=== PATIENT | male | born 1930 | race Caucasian/White ===

== ENCOUNTER 2017-04-28 10:32 | Inpatient (IN) | payer OTHER ==
[2017-04-28 10:37] VITALS: BMI 23.9
--- NOTE | 2017-04-28 11:29 | PDOC ---
History of Present Illness - General Chief Complaint: Pain Stated Complaint: RT ARM PAIN Time Seen by Provider: 04/28/17 11:08 History Source: Patient Exam Limitations: No Limitations - History of Present Illness Initial Comments: 04/28/17 12:01 Patient is an 86-year-old male past medical history of CAD, CABG, pacemaker, A. fib on warfarin, valve replacement, gout, HTN, who presents to the emergency department today complaining of right elbow pain. Patient states that his symptoms started yesterday and they started suddenly. Patient denies trauma to the arm, falling. Patient states that he is unable to extend or bend his arm and he is in a lot of pain trying to do so. He was unable to sleep last night because of the pain. He also noticed that his right hand is slightly swollen. Patient tried taking 2 Tylenol with no relief. Denies fevers, chills, weakness, recent illness, cough, shortness of breath, chest pain, palpitations, nausea, vomiting and diarrhea. Past History - Travel Traveled outside of the country in the last 30 days: No Close contact w/someone who was outside of country & ill: No - Past Medical History Allergies/Adverse Reactions: Allergies Allergy/AdvReac Type Severity Reaction Status Date / Time No Known Allergies Allergy Verified 04/28/17 10:37 Home Medications: Ambulatory Orders Allopurinol [Zyloprim -] 100 mg PO DAILY #0 tablet 06/14/12 Atenolol [Tenormin -] 50 mg PO BID 05/15/13 Escitalopram Oxalate [Lexapro -] 10 mg PO DAILY 04/23/15 Tamsulosin HCl 0.4 mg PO DAILY 04/23/15 Arformoterol Tartrate [Brovana -] 1 amp NEB BID #60 amp 08/20/15 Albuterol 2.5/Ipratropium 0.5 [Duoneb -] 1 neb NEB QIDR PRN 2 Days 12/29/15 Aspirin Coated [Ecotrin -] 81 mg PO DAILY #30 tablet.ec 12/29/15 Diltiazem Cd [Cardizem Cd -] 240 mg PO DAILY #30 cap.cd.24h 02/26/16 Furosemide [Lasix -] 40 mg PO DAILY tablet 02/26/16 Acetaminophen W/ Codeine #3 [Tylenol # 3 -] 1 tab PO Q6H PRN #20 tablet MDD 4 08 /16/17 Warfarin Sodium 4 mg PO HS 04/28/17 Anemia: No Asthma: No Cancer: No Cardiac Disorders: Yes (CAD, CABG, PPM(medtronic) a-fib) CVA: No COPD: Yes CHF: Yes Dementia: No Diabetes: No GI Disorders: No Disorders: No HTN: Yes Hypercholesterolemia: Yes Liver Disease: No Suicide Attempt (Hx): No Seizures: No Thyroid Disease: No - Surgical History Abdominal Surgery: No Appendectomy: No Cardiac Surgery: Yes (cardiac bypass, pacemaker) Cholecystectomy: No Lung Surgery: No Neurologic Surgery: No Orthopedic Surgery: No - Psycho/Social/Smoking Cessation Hx Anxiety: No Suicidal Ideation: No Smoking Status: Yes Smoking History: Never smoked Have you smoked in the past 12 months: No Number of Cigarettes Smoked Daily: 0 If you are a former smoker, when did you quit?: 40 YRS AGO Hx Alcohol Use: No Drug/Substance Use Hx: No Substance Use Type: None Hx Substance Use Treatment: No Review of Systems - Review of Systems Constitutional: No: Chills, Fever, Malaise, Weakness HEENTM: No: Other Respiratory: No: Cough, Wheezing Cardiac (ROS): No: Chest Pain, Lightheadedness, Palpitations, Chest Tightness ABD/GI: No: Diarrhea, Nausea, Vomiting Musculoskeletal: Yes: Joint Pain (R elbow), Joint Swelling (R elbow), Joint Stiffness (r elbow) Neurological: No: Numbness, Paresthesia, Tingling, Tremors, Weakness All Other Systems: Reviewed and Negative *Physical Exam - Vital Signs Last Vital Signs Temp Pulse Resp BP Pulse Ox 97.5 F L 62 20 144/89 98 04/28/17 10:33 04/28/17 10:33 04/28/17 10:33 04/28/17 10:33 04/28/17 10:33 - Physical Exam Comments: 04/28/17 12:02 GENERAL: Well developed, well nourished. Awake and alert. No acute distress. HEENT: Normocephalic, atraumatic. PERRLA, EOMI. No conjunctival pallor. Sclera are non- icteric. Moist mucous membranes. Oropharynx is clear. NECK: Supple. Full ROM. No JVD. Carotid pulses 2+ and symmetric, without bruits. No thyromegaly. No lymphadenopathy. CARDIOVASCULAR: Regular rate and rhythm. No murmurs, rubs, or gallops. Distal pulses are 2+ and symmetric. PULMONARY: No evidence of respiratory distress. Lungs clear to auscultation bilaterally. No wheezing, rales or rhonchi. ABDOMINAL: Soft. Non-tender. Non-distended. No rebound or guarding. No organomegaly. Normoactive bowel sounds. MUSCULOSKELETAL Normal range of motion at all joints. No bony deformities or tenderness. No CVA tenderness. EXTREMITIES: No cyanosis. No clubbing. No edema. No calf tenderness. SKIN: Warm and dry. Normal capillary refill. No rashes. No jaundice. NEUROLOGICAL: Alert, awake, appropriate. Cranial nerves 2-12 intact. No deficits to light touch and temperature in face, upper extremities and lower extremities. No motor deficits in the in face, upper extremities and lower extremities. Normoreflexic in the upper and lower extremities. Normal speech. Toes are down- going bilaterally. Gait is normal without ataxia. PSYCHIATRIC: Cooperative. Good eye contact. Appropriate mood and affect. ED Treatment Course - LABORATORY CBC & Chemistry Diagram: 04/28/17 11:45 04/28/17 11:45 Medical Decision Making - Medical Decision Making 04/28/17 12:02 Patient is an 86-year-old male past medical history of CAD, CABG, pacemaker, A. fib on warfarin, valve replacement, gout, HTN, who presents to the emergency department today complaining of right elbow pain. Given lack of trauma, less suspicious for acute fracture. Differential diagnosis includes but not limited to hemarthrosis due to Coumadin use, septic joint, gout flare. 1. CBC, CMP, PT/INR, uric acid 2. x-ray of right elbow and right shoulder 3. Tylebol for pain 4. Re-evaluate 04/28/17 14:12 X-rays are negative for fracture. Lab work is significant for a uric acid of 8.5, WBC WNL, BUN/Cr 44/1.8 ( baseline Cr 1.6). Most probably a gout flare. Will give pain medications for home as well as compression wrap and sling for comfort. Will avoid ibuprofen as BUN and Cr are mildly elevated. Will give referral for ortho as outpatient. 04/28/17 14:54 Repeat blood pressure prior discharge now 230/110. Pt. states that he missed his home medication. Will order his home medication at this time and re- evaluate his vitals in approximately 30 minutes. 04/28/17 15:52 4 mg of morphine given for pain control. BP still 230/100. Will reassess after morphine 04/28/17 17:02 Pt. blood pressure still elevated after 4mg of morphine. Pt. reports that elbow feels a little better. Pressure still holding at 230/100. Pt. states that he has not seen a motion picture camera lens technician in a couple of years. Will call Dr. Sandoval. 04/28/17 17:[address] Sandoval. Will accept the patient to telemetry. *DC/Admit/Observation/Transfer Diagnosis at time of Disposition: Gout Qualifiers: Gout site: elbow Gout etiology: unspecified cause Chronicity: acute Laterality : right Qualified Code(s): M10.9 - Gout, unspecified HTN (hypertension) Qualifiers: Hypertension type: unspecified Qualified Code(s): I10 - Essential (primary) hypertension - Discharge Dispostion Disposition: HOME Condition at time of disposition: Guarded Admit: Yes - Prescriptions Prescriptions: Acetaminophen W/ Codeine #3 [Tylenol # 3 -] 1 tab PO Q6H PRN #20 tablet MDD 4 PRN Reason: Pain - Referrals Referrals: Dory Sandoval MD [Primary Care Provider] - - Patient Instructions Additional Instructions: You have a gout flare in your R elbow. This can be very painful. Continue to take your allopurinol as prescribed by your primary care doctor. You were also prescribed Tylenol with codeine. You may take this medication as needed for pain. This medication can make you sleepy; do not drive after taking Tylenol with codeine. You were given a sling for comfort. You make take the sling off to sleep. You were also given an mindi wrap for comfort. Follow up with orthopedics (referral number listed in the packet) to make an appointment for later this week. You received your daily dose of Dilitazem (Cardizem) today in the ED. Do not take this medication when you go home. Resume it tomorrow. You received one dose of Atenolol. Take your evening dose of Atenolol at your regular scheduled time. Return to the ED if you have worsening pain, fevers, chills, nausea, vomiting, or any other changes in your symptoms.
[2017-04-28] MEDS ORDERED: ACETAMINOPHEN 325 MG TABLET (FP) PO ONE (11:37)
[2017-04-28 11:57] LABS: BASOPHIL 0.2 % (0-2.0); EOSINOPHIL 1.7 % (0-4.5); MCH 30.5 pg (25.7-33.7); MEAN CELL VOLUME 95.3 fl (80-96); MEAN PLT VOLUME 8.7 fl (7.5-11.1); NEUTROPHILS 68.1 % (42.8-82.8); PLATELET COUNT 100 K/MM3 (134-434); RDW 15.2 % (11.9-15.9); WHITE BLOOD COUNT 5.9 K/mm3 (4.0-10.0)
[2017-04-28] MEDS ORDERED: ACETAMINOPHEN 325 MG TABLET (FP) ONE (12:01)
[2017-04-28 12:13] LABS: INR 2.02 (0.82-1.09); PROTHROMBIN TIME (PATIENT) 22.5 SEC (9.98-11.88)
[2017-04-28 12:23] LABS: ALBUMIN 3.4 g/dl (3.4-5.0); ALK PHOS 67 U/L (45-117); ANION GAP 7 (8-16); BILIRUBIN,TOTAL 0.7 mg/dL (0.2-1.0); CALCIUM 8.5 mg/dL (8.5-10.1); CO2 26 mmol/L (21-32); CREATININE 1.8 mg/dL (0.7-1.3); GLUCOSE,RANDOM 108 mg/dL (74-106); SGOT/AST 18 U/L (15-37); SGPT/ALT 24 U/L (12-78); TOT PROT 6.4 g/dl (6.4-8.2); URIC ACID 8.5 mg/dL (2.6-7.2)
[2017-04-28 14:08] LABS: C-REACTIVE PROTEIN 3.3 MG/DL (0.00-0.3)
[2017-04-28] MEDS ORDERED: ATENOLOL 50 MG TABLET (FP) PO ONE ×2 (14:44→22:15)
[2017-04-28] MEDS ORDERED: dilTIAZem HCL 60 MG TABLET (FP) PO ONE (14:44)
[2017-04-28] MEDS ORDERED: ATENOLOL 25 MG TABLET (FP) ONE (14:55)
[2017-04-28] MEDS ORDERED: ACETAMINOPHEN WITH CODEINE 300MG/30MG TABLET PO ONE (16:09)
[2017-04-28] MEDS ORDERED: morphine CARPU-JECT 2 MG/1 ML DISP.SYRIN IM ONE (16:13)
[2017-04-28] MEDS ORDERED: morphine CARPU-JECT 4 MG/1 ML DISP.SYRIN ONE (16:15)
[2017-04-28] MEDS ORDERED: hydrALAZINE HCL 20 MG/ML VIAL IVPUSH ONE (17:52)
[2017-04-28] MEDS ORDERED: hydrALAZINE HCL 20 MG/ML VIAL ONE (17:54)
--- NOTE | 2017-04-28 18:31 | PDOC ---
*Physical Exam - Vital Signs Last Vital Signs Temp Pulse Resp BP Pulse Ox 97.6 F 66 18 234/94 98 04/28/17 18:02 04/28/17 18:05 04/28/17 18:05 04/28/17 18:05 04/28/17 18:05 ED Treatment Course - LABORATORY CBC & Chemistry Diagram: 04/30/17 05:35 04/29/17 05:35 - ADDITIONAL ORDERS Additional order review: Laboratory Results 04/28/17 04/28/17 11:45 11:45 INR 2.02 H Sodium 142 Potassium 4.1 Chloride 109 H Carbon Dioxide 26 Anion Gap 7 L BUN 47 H Creatinine 1.8 H Creat Clearance w eGFR 36.04 Random Glucose 108 H D Uric Acid 8.5 H D Calcium 8.5 Total Bilirubin 0.7 AST 18 ALT 24 D Alkaline Phosphatase 67 C-Reactive Protein 3.3 H Total Protein 6.4 Albumin 3.4 04/28/17 11:45 RBC 4.14 MCV 95.3 MCHC 32.0 RDW 15.2 MPV 8.7 Neutrophils % 68.1 Lymphocytes % 15.3 Monocytes % 14.7 H D Eosinophils % 1.7 Basophils % 0.2 D - Medications Given in the ED: ED Medications Discontinued Medications Generic Name Dose Route Start Last Admin Trade Name Freq PRN Reason Stop Dose Admin Acetaminophen 650 mg 04/28/17 11:37 04/28/17 12:06 Tylenol - PO 04/28/17 11:38 650 mg ONCE ONE Administration Atenolol 50 mg 04/28/17 14:44 04/28/17 14:57 Tenormin - PO 04/28/17 14:45 50 mg ONCE ONE Administration Diltiazem HCl 240 mg 04/28/17 15:08 04/28/17 15:11 Cardizem Cd - PO 04/28/17 15:09 240 mg ONCE ONE Administration Hydralazine HCl 10 mg 04/28/17 17:52 04/28/17 18:03 Apresoline Injection - IVPUSH 04/28/17 17:53 10 mg ONCE ONE Administration Morphine Sulfate 4 mg 04/28/17 16:13 04/28/17 16:20 Morphine Injection - IM 04/28/17 16:14 4 mg ONCE ONE Administration Medical Decision Making - Medical Decision Making 04/28/17 18:29 This patient is an 86-year-old male with a history of hypertension who presents emergency Department with elbow pain and swelling. He has a prior history of gout,, last flare was many years ago. No fevers, no chills. No trauma. On examination, patient is motion is limited due to pain. Patient's labs suggest possible gout flare. Attempting to discharge this patient however BP elevated Pt given his home medications, pain medications BP remains elevated He has no complaints of chest pain, shortness of breath, palpitations will give Hydralazine Re assess BP Admit to PMD for closer monitoring Pt complained of increased shortness of breath Repeat labs including BNP and Trop CXR Signed out to Dr Barajas Pt seen by Midlevel Provider under my direct supervision Ancillary studies reviewed I agree with plan as outlined by Midlevel Provider *DC/Admit/Observation/Transfer Diagnosis at time of Disposition: Gout Qualifiers: Gout site: elbow Gout etiology: unspecified cause Chronicity: acute Laterality : right Qualified Code(s): M10.9 - Gout, unspecified HTN (hypertension) Qualifiers: Hypertension type: unspecified Qualified Code(s): I10 - Essential (primary) hypertension - Discharge Dispostion Disposition: HOME Condition at time of disposition: Guarded - Prescriptions
[2017-04-28] MEDS ORDERED: LORazepam 2 MG/ML SDV VIAL ONE (19:27)
[2017-04-28 20:49] LABS: ALBUMIN 3.4 g/dl (3.4-5.0); ANION GAP 8 (8-16); CALCIUM 8.5 mg/dL (8.5-10.1); CO2 26 mmol/L (21-32); CREATININE 1.5 mg/dL (0.7-1.3); GLUCOSE,RANDOM 113 mg/dL (74-106); SGOT/AST 18 U/L (15-37); SGPT/ALT 23 U/L (12-78)
[2017-04-28 20:52] LABS: ALK PHOS 64 U/L (45-117); CPK 100 IU/L (39-308); TOT PROT 6.2 g/dl (6.4-8.2); TROPONIN I < 0.02 ng/ml (0.00-0.05)
[2017-04-28] MEDS ORDERED: FUROSEMIDE 40 MG/4 ML INJECTABLE VIAL IVPUSH ONE (22:15)
[2017-04-28] MEDS ORDERED: ACETAMINOPHEN 325 MG TABLET (FP) PO PRN (23:35)
[2017-04-28] MEDS ORDERED: ACETAMINOPHEN WITH CODEINE 300MG/30MG TABLET PO PRN (23:35)
[2017-04-28] MEDS ORDERED: ALBUTEROL SO4 2.5/IPRATROPIUM 0.5 INH SOL 3 ML VIAL.NEB. NEB PRN (23:35)
[2017-04-29] MEDS ORDERED: hydrALAZINE HCL 20 MG/ML VIAL ONE (02:42)
[2017-04-29] MEDS ORDERED: hydrALAZINE HCL 20 MG/ML VIAL IVPUSH ONE (02:45)
[2017-04-29 07:45] LABS: ALBUMIN 3.2 g/dl (3.4-5.0); ANION GAP 7 (8-16); CALCIUM 8.2 mg/dL (8.5-10.1); CO2 26 mmol/L (21-32); CREATININE 1.5 mg/dL (0.7-1.3); GLUCOSE,RANDOM 81 mg/dL (74-106); SGOT/AST 15 U/L (15-37); SGPT/ALT 20 U/L (12-78); TOT PROT 5.9 g/dl (6.4-8.2)
[2017-04-29 07:46] LABS: ALK PHOS 59 U/L (45-117)
[2017-04-29 08:17] LABS: BASOPHIL 0.3 % (0-2.0); EOSINOPHIL 1.3 % (0-4.5); MCH 31.8 pg (25.7-33.7); MCHC 33.7 g/dl (32.0-35.9); MEAN CELL VOLUME 94.3 fl (80-96); MEAN PLT VOLUME 10.2 fl (7.5-11.1); NEUTROPHILS 72.2 % (42.8-82.8); PLATELET COUNT 118 K/MM3 (134-434); RDW 15.6 % (11.9-15.9); WHITE BLOOD COUNT 6.1 K/mm3 (4.0-10.0)
--- NOTE | 2017-04-29 08:21 | HP ---
Admitting History and Physical - Admission History of Present Illness: 86-year-old male past medical history of CAD, CABG, pacemaker, A. fib on warfarin, valve replacement, gout, HTN, who presents to the emergency department today complaining of right elbow pain. Patient states that his symptoms started yesterday and they started suddenly. Patient denies trauma to the arm, falling. Patient states that he is unable to extend or bend his arm and he is in a lot of pain trying to do so. He was unable to sleep last night because of the pain. He also noticed that his right hand is slightly swollen. Patient tried taking 2 Tylenol with no relief. Denies fevers, chills, weakness, recent illness, cough, shortness of breath, chest pain, palpitations, nausea, vomiting and diarrhea. - Past Medical History CHEF FRENCH: Yes: Dementia Cardiovascular: Yes: AFIB, CAD (s/p CABG), CHF Pulmonary: Yes: COPD Gastrointestinal: Yes: Other (colonic polyps) Renal/: Yes: Renal Inusuff - Past Surgical History Past Surgical History: Yes: CABG, Permanent Pacemaker, Valve Replacement - Smoking History Smoking history: Former smoker Have you smoked in the past 12 months: No Aproximately how many cigarettes per day: 0 If you are a former smoker, when did you quit?: 40 YRS AGO - Alcohol/Substance Use Hx Alcohol Use: No Home Medications - Allergies Allergies/Adverse Reactions: Allergies Allergy/AdvReac Type Severity Reaction Status Date / Time No Known Allergies Allergy Verified 04/28/17 10:37 - Home Medications Home Medications: Ambulatory Orders Allopurinol [Zyloprim -] 100 mg PO DAILY #0 tablet 06/14/12 Atenolol [Tenormin -] 50 mg PO BID 05/15/13 Escitalopram Oxalate [Lexapro -] 10 mg PO DAILY 04/23/15 Tamsulosin HCl 0.4 mg PO DAILY 04/23/15 Arformoterol Tartrate [Brovana -] 1 amp NEB BID #60 amp 08/20/15 Albuterol 2.5/Ipratropium 0.5 [Duoneb -] 1 neb NEB QIDR PRN 2 Days 12/29/15 Aspirin Coated [Ecotrin -] 81 mg PO DAILY #30 tablet.ec 12/29/15 Diltiazem Cd [Cardizem Cd -] 240 mg PO DAILY #30 cap.cd.24h 02/26/16 Furosemide [Lasix -] 40 mg PO DAILY tablet 02/26/16 Acetaminophen W/ Codeine #3 [Tylenol # 3 -] 1 tab PO Q6H PRN #20 tablet MDD 4 Warfarin Sodium 4 mg PO HS 04/28/17 Review of Systems - Review of Systems Cardiovascular: denies: Chest Pain Respiratory: reports: SOB, SOB on Exertion. denies: Cough Gastrointestinal: denies: Abdominal Pain Genitourinary: reports: No Symptoms Musculoskeletal: reports: Joint Pain (rt elbow), Joint Swelling (rt elbow) Neurological: reports: Unsteady Gait, Weakness. denies: Syncope Physical Examination Vital Signs: Vital Signs Temperature 98.9 F 04/29/17 06:00 Pulse Rate 65 04/29/17 06:00 Respiratory Rate 18 04/29/17 06:00 Blood Pressure 189/92 04/29/17 06:00 O2 Sat by Pulse Oximetry (%) 98 04/28/17 22:00 Cardiovascular: Yes: Murmur, S1, S2 Respiratory: Yes: Diminished, Rales Gastrointestinal: Yes: Normal Bowel Sounds, Soft Extremities: Yes: Other (swelling rt elbow) Labs: CBC, BMP 04/29/17 05:35 Problem List - Problems (1) Afib Assessment/Plan: ON COUMADIN INR THERAPEUTIC Code(s): I48.91 - UNSPECIFIED ATRIAL FIBRILLATION Qualifiers: Atrial fibrillation type: chronic Qualified Code(s): I48.2 - Chronic atrial fibrillation (2) CAD (coronary artery disease) Assessment/Plan: STABLE NO CP Code(s): I25.10 - ATHSCL HEART DISEASE OF [place] CORONARY ARTERY W/O ANG PCTRS Qualifiers: Coronary Disease-Associated Artery/Lesion type: unspecified vessel or lesion type (3) Gout Assessment/Plan: Laboratory Tests 04/28/17 11:45 Uric Acid 8.5 H D SOLUMEDROL ORTHO Code(s): M10.9 - GOUT, UNSPECIFIED Qualifiers: Gout site: elbow Gout etiology: unspecified cause Chronicity: acute Laterality: right Qualified Code(s): M10.9 - Gout, unspecified (4) CHF (congestive heart failure) Assessment/Plan: IV LASIX CARDIO Code(s): I50.9 - HEART FAILURE, UNSPECIFIED Qualifiers: Congestive heart failure type: unspecified congestive heart failure type Congestive heart failure chronicity: unspecified congestive heart failure chronicity Qualified Code(s): I50.9 - Heart failure, unspecified (5) COPD (chronic obstructive pulmonary disease) Assessment/Plan: NEBS ON STEROIDS Code(s): J44.9 - CHRONIC OBSTRUCTIVE PULMONARY DISEASE, UNSPECIFIED Qualifiers : COPD type: COPD with acute exacerbation Qualified Code(s): J44.1 - Chronic obstructive pulmonary disease with (acute) exacerbation (6) Weakness Code(s): R53.1 - WEAKNESS
[2017-04-29 09:06] LABS: INR 1.74 (0.82-1.09); PROTHROMBIN TIME (PATIENT) 19.4 SEC (9.98-11.88)
[2017-04-29] MEDS: TAMSULOSIN HCL 0.4 MG CAP.ER.24H (FP) PO SCH (09:56)
[2017-04-29] MEDS: ASPIRIN COATED 81 MG TABLET.EC PO SCH (09:56)
[2017-04-29] MEDS: ESCITALOPRAM OXALATE 10 MG TABLET (FP) PO SCH (09:56)
[2017-04-29] MEDS: methylPREDNISolone NA SUCC 40 MG/1 ML VIAL IVPB SCH ×2 (09:58→18:03)
[2017-04-29] MEDS ORDERED: FUROSEMIDE 40 MG/4 ML INJECTABLE VIAL IVPUSH SCH (10:00)
[2017-04-29] MEDS: ALBUTEROL SO4 2.5/IPRATROPIUM 0.5 INH SOL 3 ML VIAL.NEB. NEB SCH ×3 (11:56→23:05)
[2017-04-29] MEDS: hydrALAZINE HCL 25 MG TABLET (FP) PO SCH ×2 (14:33→21:42)
--- NOTE | 2017-04-29 14:54 | EKG ---
Test Reason : Blood Pressure : / mmHG Vent. Rate : 064 BPM Atrial Rate : 055 BPM P-R Int : 000 ms QRS Dur : 176 ms QT Int : 496 ms P-R-T Axes : 000 267 041 degrees QTc Int : 511 ms Ventricular-paced rhythm WITH OCCASIONAL PREMATURE VENTRICULAR COMPLEXES ABNORMAL ECG WHEN COMPARED WITH ECG OF 24-FEB-2016 17:08, PREMATURE VENTRICULAR COMPLEXES ARE NOW PRESENT VENT. RATE HAS INCREASED BY 3 BPM Confirmed by EZEQUIEL COHEN, MICHELLE ([id number]) on 04/29/2017 2:53:56 PM Referred By: Confirmed By:MICHELLE NIEVES MD
--- NOTE | 2017-04-29 14:56 | EKG ---
Test Reason : Blood Pressure : / mmHG Vent. Rate : 065 BPM Atrial Rate : 044 BPM P-R Int : 000 ms QRS Dur : 088 ms QT Int : 420 ms P-R-T Axes : 000 096 -39 degrees QTc Int : 436 ms POOR DATA QUALITY, INTERPRETATION MAY BE ADVERSELY AFFECTED ATRIAL FIBRILLATION WITH FREQUENT ventricular-paced complexes RIGHTWARD AXIS CANNOT RULE OUT INFERIOR INFARCT , AGE UNDETERMINED ANTEROSEPTAL INFARCT , AGE UNDETERMINED T WAVE ABNORMALITY, CONSIDER LATERAL ISCHEMIA ABNORMAL ECG WHEN COMPARED WITH ECG OF 24-FEB-2016 17:08, VENT. RATE HAS INCREASED BY 4 BPM Confirmed by MICHELLE NIEVES MD ([id number]) on 04/29/2017 2:56:11 PM Referred By: Confirmed By:MICHELLE NIEVES MD
--- NOTE | 2017-04-29 15:28 | CON.CARD ---
Consult Consult Specialty:: Cardiology Referred by:: Dr. Sandoval Reason for Consultation:: CHF - History of Present Illness Chief Complaint: Shortness of breath/CHF History of Present Illness: 86-year-old man with a PMHx of HTN, CAD, s/p CABG, CHF, pacemaker, atrial fibrillation on warfarin, s/p valve replacement, gout admitted 04/28/2017 with right elbow pain. Patient developed right elbow pain one day prior to this admission. He denies trauma to the arm, falling. Patient tried taking 2 Tylenol with no relief. He has occasional shortness of breath with limited exercise tolerance for some time. He was found to have pulmonary congestion with marked elevated pro-BNP, consistent with acute CHF. He reports no chest pain, palpitation, dizziness, syncope, near syncope, edema, orthopnea or PND. 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: Dementia Cardio/Vascular: Yes: AFIB, CAD (s/p CABG), CHF Pulmonary: Yes: COPD Gastrointestinal: Yes: Other (colonic polyps) Renal/: Yes: Renal Inusuff - Past Surgical History Past Surgical History: Yes: CABG, Permanent Pacemaker, Valve Replacement - Alcohol/Substance Use Hx Alcohol Use: No - Smoking History Smoking history: Former smoker Have you smoked in the past 12 months: No Aproximately how many cigarettes per day: 0 If you are a former smoker, when did you quit?: 40 YRS AGO - Social History Usual Living Arrangement: With Spouse History of Recent Travel: No Home Medications - Allergies Allergies/Adverse Reactions: Allergies Allergy/AdvReac Type Severity Reaction Status Date / Time No Known Allergies Allergy Verified 04/28/17 10:37 - Home Medications Home Medications: Ambulatory Orders Allopurinol [Zyloprim -] 100 mg PO DAILY #0 tablet 06/14/12 Atenolol [Tenormin -] 50 mg PO BID 05/15/13 Escitalopram Oxalate [Lexapro -] 10 mg PO DAILY 04/23/15 Tamsulosin HCl 0.4 mg PO DAILY 04/23/15 Arformoterol Tartrate [Brovana -] 1 amp NEB BID #60 amp 08/20/15 Albuterol 2.5/Ipratropium 0.5 [Duoneb -] 1 neb NEB QIDR PRN 2 Days 12/29/15 Aspirin Coated [Ecotrin -] 81 mg PO DAILY #30 tablet.ec 12/29/15 Diltiazem Cd [Cardizem Cd -] 240 mg PO DAILY #30 cap.cd.24h 02/26/16 Furosemide [Lasix -] 40 mg PO DAILY tablet 02/26/16 Acetaminophen W/ Codeine #3 [Tylenol # 3 -] 1 tab PO Q6H PRN #20 tablet MDD 4 Warfarin Sodium 4 mg PO HS 04/28/17 Review of Systems - Review of Systems Constitutional: reports: No Symptoms Eyes: reports: No Symptoms HENT: reports: No Symptoms Neck: reports: No Symptoms Cardiovascular: reports: Shortness of Breath Respiratory: reports: SOB Gastrointestinal: reports: No Symptoms Genitourinary: reports: No Symptoms Musculoskeletal: reports: Joint Swelling, Other (Right elbow pain.) Integumentary: reports: No Symptoms Neurological: reports: No Symptoms Endocrine: reports: No Symptoms Hematology/Lymphatic: reports: No Symptoms Vital Signs: Vital Signs Temperature 98.6 F 04/29/17 14:22 Pulse Rate 60 04/29/17 14:22 Respiratory Rate 18 04/29/17 14:22 Blood Pressure 149/66 04/29/17 14:22 O2 Sat by Pulse Oximetry (%) 98 04/28/17 22:00 Constitutional: Yes: Well Nourished, No Distress Eyes: Yes: WNL HENT: Yes: WNL, Atraumatic, Normocephalic Neck: Yes: Supple, Trachea Midline Respiratory: Yes: Regular, Other (Bilateral rales, 2/3 up from the back.) Gastrointestinal: Yes: Normal Bowel Sounds, Soft Renal/: Yes: WNL Cardiovascular: Yes: Regular Rate and Rhythm JVD: No Carotid Bruit: No Heart Sounds: Yes: S1, S2 Murmur: Yes: Systolic Murmur, Grade 1 Edema: No Peripheral Pulses WNL: Yes Integumentary: Yes: WNL Neurological: Yes: WNL - Other Data Labs, Other Data: CBC, BMP 04/29/17 05:35 04/29/17 05:35 INR, PTT INR 1.74 (0.82-1.09) H 04/29/17 05:35 Ventricularly paced rhythm at 64 BPM. Imaging - Results Chest X-ray: Report Reviewed (Pulmonary congestion and cardiomegaly.) EKG: Image Reviewed (Paced rhythm.) Assessment/Plan 86-year-old man with a PMHx of HTN, CAD, s/p CABG, pacemaker, atrial fibrillation on warfarin, s/p valve replacement, gout admitted 04/28/2017 with right elbow pain. He was found to have pulmonary congestion with marked elevated pro-BNP, consistent with acute CHF. 1) CHF with CXR evidence of pulmonary congestion and cardiomegaly.His pro-BNP is markedly elevated. Patient has no acute dyspnea. Increase IV Lasix to 40 mg twice daily to keep Os > Is. Monitor daily weight, lytes and renal function. Obtain echo for cardiac dimension and function. 2) CAD, s/p CABG. Stable no recurrent angina Continue aspirin and atenolol. 3) Atrial fibrillation. Currently in paced rhythm. Continue atenolol and cardizem. Continue Warfarin for stroke prevention to keep INR 2-3.
--- NOTE | 2017-04-29 17:24 | PN ---
Progress Note (short form) - Note Progress Note: Pt seen and examined. He is an 86 yo M right hand dom pt with c/o 2 days of increasing swelling and severe pain in the right hand, elbow, and shoulder. He came through the ER. He has improved dramatically over the past 24 hours. Now he is able to move the right shoulder, elbow, forearm, wrist, fingers, thumb well and without pain. The swelling has improved dramatically. Right shoulder, elbow, wrist joints are not hot or erythematous. 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 No acute pathology. Show mod right elbow OA, no acute pathology. Imp Likely an acute Gout flare up, now 95% resolved. Rec Con't on antogout meds. No ortho intervention needed at this time. Can DC Wednesday from an ortho pov
[2017-04-29] MEDS ORDERED: WARFARIN NA 2 MG TABLET (UD) PO SCH (18:00)
[2017-04-29] MEDS: ATENOLOL 50 MG TABLET (FP) PO SCH (21:42)
[2017-04-30] MEDS: methylPREDNISolone NA SUCC 40 MG/1 ML VIAL IVPB SCH ×2 (02:15→10:11)
[2017-04-30] MEDS: ALBUTEROL SO4 2.5/IPRATROPIUM 0.5 INH SOL 3 ML VIAL.NEB. NEB SCH ×3 (05:35→17:00)
[2017-04-30] MEDS: FUROSEMIDE 40 MG/4 ML INJECTABLE VIAL IVPUSH SCH ×2 (06:07→14:05)
[2017-04-30] MEDS: hydrALAZINE HCL 25 MG TABLET (FP) PO SCH ×2 (06:07→14:05)
[2017-04-30 08:14] LABS: MCH 30.5 pg (25.7-33.7); MCHC 32.5 g/dl (32.0-35.9); MEAN CELL VOLUME 93.9 fl (80-96); MEAN PLT VOLUME 9.8 fl (7.5-11.1); NEUTROPHILS 92.6 % (42.8-82.8); PLATELET COUNT 118 K/MM3 (134-434); RDW 15.5 % (11.9-15.9); WHITE BLOOD COUNT 9.3 K/mm3 (4.0-10.0)
[2017-04-30 09:00] LABS: ALBUMIN 3.3 g/dl (3.4-5.0); ALK PHOS 62 U/L (45-117); ANION GAP 11 (8-16); BILIRUBIN,TOTAL 0.6 mg/dL (0.2-1.0); CALCIUM 8.9 mg/dL (8.5-10.1); CO2 23 mmol/L (21-32); CREATININE 1.9 mg/dL (0.7-1.3); GLUCOSE,RANDOM 147 mg/dL (74-106); SGOT/AST 20 U/L (15-37); SGPT/ALT 22 U/L (12-78); TOT PROT 6.4 g/dl (6.4-8.2)
--- NOTE | 2017-04-30 09:47 | PN ---
Progress Note (short form) - Note Progress Note: Ortho Pt seen and examined -feeling much better- states he has little to no pain decr swelling and erythema, decr pain, incr rom nvi a/p Continue with current gout tx NTD ok to d/c per ortho d/w Dr. Michaels
[2017-04-30] MEDS: TAMSULOSIN HCL 0.4 MG CAP.ER.24H (FP) PO SCH (10:11)
[2017-04-30] MEDS: ESCITALOPRAM OXALATE 10 MG TABLET (FP) PO SCH (10:11)
[2017-04-30] MEDS: ATENOLOL 50 MG TABLET (FP) PO SCH (10:11)
[2017-04-30] MEDS: ASPIRIN COATED 81 MG TABLET.EC PO SCH (10:11)
[2017-04-30 11:00] LABS: INR 1.62 (0.82-1.09)
--- NOTE | 2017-04-30 11:44 | DS ---
Physical Examination Vital Signs: Vital Signs Temperature 98.2 F 04/30/17 09:05 Pulse Rate 60 04/30/17 09:05 Respiratory Rate 16 04/30/17 09:05 Blood Pressure 142/68 04/30/17 09:05 O2 Sat by Pulse Oximetry (%) 95 04/29/17 21:00 Constitutional: Yes: Calm Cardiovascular: Yes: Regular Rate and Rhythm, Murmur, S1, S2 Respiratory: Yes: CTA Bilaterally, Diminished (on right lower lobe) Gastrointestinal: Yes: Normal Bowel Sounds, Soft Edema: No Labs: CBC, BMP 04/30/17 05:35 04/30/17 05:35 Discharge Summary Reason For Visit: GOUT\HYPERTENSION Current Active Problems Afib (Acute) BPH (benign prostatic hyperplasia) (Acute) CAD (coronary artery disease) (Acute) GIB (gastrointestinal bleeding) (Acute) Gout (Acute) HTN (hypertension) (Acute) Post-polypectomy bleeding (Acute) Weakness (Acute) Hospital Course: 86-year-old male past medical history of CAD, CABG, pacemaker, A. fib on warfarin, valve replacement, gout, HTN, who presents to the emergency department today complaining of right elbow pain. Patient states that his symptoms started yesterday and they started suddenly. Patient denies trauma to the arm, falling. Patient states that he is unable to extend or bend his arm and he is in a lot of pain trying to do so. He was unable to sleep last night because of the pain. He also noticed that his right hand is slightly swollen. Patient tried taking 2 Tylenol with no relief. Denies fevers, chills, weakness, recent illness, cough, shortness of breath, chest pain, palpitations, nausea, vomiting and diarrhea. patient found to have pulmonary congestive - acute CHF iv lasix cardiology saw patient- change to po lasix 40mg po bid FU with PMD next week gout ortho saw patient on steroids right hand much better now copd on iv steroid will change to po steroid 60mg po prednsione with taper aifb on coumadin inr subtherapeutic give 5mg coumadin tonight and tmw and then resume regular dose Condition: Guarded - Instructions Diet, Activity, Other Instructions: You have a gout flare in your R elbow. This can be very painful. Continue to take your allopurinol as prescribed by your primary care doctor. You were also prescribed Tylenol with codeine. You may take this medication as needed for pain. This medication can make you sleepy; do not drive after taking Tylenol with codeine. You were given a sling for comfort. You make take the sling off to sleep. You were also given an mindi wrap for comfort. Follow up with orthopedics (referral number listed in the packet) to make an appointment for later this week. You received your daily dose of Dilitazem (Cardizem) today in the ED. Do not take this medication when you go home. Resume it tomorrow. You received one dose of Atenolol. Take your evening dose of Atenolol at your regular scheduled time. Return to the ED if you have worsening pain, fevers, chills, nausea, vomiting, or any other changes in your symptoms. Referrals: Dory Sandoval MD [Primary Care Provider] - - Home Medications Comprehensive Discharge Medication List: Ambulatory Orders Allopurinol [Zyloprim -] 100 mg PO DAILY #0 tablet 06/14/12 Atenolol [Tenormin -] 50 mg PO BID 05/15/13 Escitalopram Oxalate [Lexapro -] 10 mg PO DAILY 04/23/15 Tamsulosin HCl 0.4 mg PO DAILY 04/23/15 Arformoterol Tartrate [Brovana -] 1 amp NEB BID #60 amp 08/20/15 Albuterol 2.5/Ipratropium 0.5 [Duoneb -] 1 neb NEB QIDR PRN 2 Days 12/29/15 Aspirin Coated [Ecotrin -] 81 mg PO DAILY #30 tablet.ec 12/29/15 Diltiazem Cd [Cardizem Cd -] 240 mg PO DAILY #30 cap.cd.24h 02/26/16 Furosemide [Lasix -] 40 mg PO DAILY tablet 02/26/16 Acetaminophen W/ Codeine #3 [Tylenol # 3 -] 1 tab PO Q6H PRN #20 tablet MDD 4 Warfarin Sodium 4 mg PO HS 04/28/17
--- NOTE | 2017-04-30 11:49 | PN ---
Progress Note, Physician Chief Complaint: patient was very confused last nite and was calling and son her to pick him up want him home patient breathing improved and hand swelling better as well will repeat cxr today and have cardio see patient - Current Medication List Current Medications: Active Medications Acetaminophen (Tylenol -) 650 mg PO Q6H PRN PRN Reason: FEVER OR PAIN Acetaminophen/Codeine Phosphate (Tylenol # 3 -) 1 tab PO Q8H PRN PRN Reason: FEVER OR PAIN Albuterol/Ipratropium (Duoneb -) 1 amp NEB QIDR [facility] Last Admin: 04/30/17 05:35 Dose: 1 amp Aspirin (Ecotrin -) 81 mg PO DAILY [facility] Last Admin: 04/30/17 10:11 Dose: 81 mg Atenolol (Tenormin -) 50 mg PO BID [facility] Last Admin: 04/30/17 10:11 Dose: 50 mg Diltiazem HCl (Cardizem Cd -) 240 mg PO DAILY [facility] Last Admin: 04/30/17 10:11 Dose: 240 mg Escitalopram Oxalate (Lexapro -) 10 mg PO DAILY [facility] Last Admin: 04/30/17 10:11 Dose: 10 mg Furosemide (Lasix Injection -) 40 mg IVPUSH BID@0600,1400 [facility] Last Admin: 04/30/17 06:07 Dose: 40 mg Hydralazine HCl (Apresoline -) 25 mg PO TID [facility] Last Admin: 04/30/17 06:07 Dose: 25 mg Prednisone (Deltasone -) 60 mg PO DAILY [facility] Tamsulosin HCl (Flomax -) 0.4 mg PO DAILY@0830 [facility] Last Admin: 04/30/17 10:11 Dose: 0.4 mg Warfarin Sodium (Coumadin -) 4 mg PO DAILY@1800 [facility] Last Admin: 04/29/17 18:03 Dose: 4 mg - Objective Vital Signs: Vital Signs Temperature 98.2 F 04/30/17 09:05 Pulse Rate 60 04/30/17 09:05 Respiratory Rate 16 04/30/17 09:05 Blood Pressure 142/68 04/30/17 09:05 O2 Sat by Pulse Oximetry (%) 95 04/29/17 21:00 Constitutional: Yes: Calm Cardiovascular: Yes: Regular Rate and Rhythm, Murmur, S1, S2 Respiratory: Yes: CTA Bilaterally, Diminished (on right lower lobe) Gastrointestinal: Yes: Normal Bowel Sounds, Soft Edema: No Neurological: Yes: Alert, Oriented Labs: CBC, BMP 04/30/17 05:35 04/30/17 05:35 INR, PTT INR 1.62 (0.82-1.09) H 04/30/17 10:30 Problem List - Problems (1) Afib Assessment/Plan: coumadin 5mg tonight in evening prior to dc home and tmw nite then resume regular dose as inr subtherpaeutic on cardizem and metoprolol Code(s): I48.91 - UNSPECIFIED ATRIAL FIBRILLATION Qualifiers: Atrial fibrillation type: chronic Qualified Code(s): I48.2 - Chronic atrial fibrillation (2) Gout Assessment/Plan: much improved seen by ortho will change to po prednisone 60mgwith taper Code(s): M10.9 - GOUT, UNSPECIFIED Qualifiers: Gout site: elbow Gout etiology: unspecified cause Chronicity: acute Laterality: right Qualified Code(s): M10.9 - Gout, unspecified (3) CHF (congestive heart failure) Assessment/Plan: today to get two doses of lasix IV- next dose is at 200PM cxr today cardio FU change to po lasix 40mg bid from tmw and then if cxr is better dc home today in evening and FU with PMD on wednesday Code(s): I50.9 - HEART FAILURE, UNSPECIFIED Qualifiers: Congestive heart failure type: unspecified congestive heart failure type Congestive heart failure chronicity: unspecified congestive heart failure chronicity Qualified Code(s): I50.9 - Heart failure, unspecified (4) COPD (chronic obstructive pulmonary disease) Assessment/Plan: today to get one more solumedrol iv dose in evening then dc home prednisone taper from tmw Code(s): J44.9 - CHRONIC OBSTRUCTIVE PULMONARY DISEASE, UNSPECIFIED Qualifiers : COPD type: COPD with acute exacerbation Qualified Code(s): J44.1 - Chronic obstructive pulmonary disease with (acute) exacerbation (5) BPH (benign prostatic hyperplasia) Assessment/Plan: flomax Code(s): N40.0 - BENIGN PROSTATIC HYPERPLASIA WITHOUT LOWER URINRY TRACT SYMP Qualifiers: Lower urinary tract symptom presence: symptoms absent
[2017-04-30] MEDS ORDERED: FUROSEMIDE 40 MG/4 ML INJECTABLE VIAL IVPB ONE (14:00)
--- NOTE | 2017-04-30 14:04 | PN ---
Progress Note, Physician Chief Complaint: Lying flat in bed comfortable No sob History of Present Illness: 86-year-old man with a PMHx of HTN, CAD, s/p CABG, pacemaker, atrial fibrillation on warfarin, s/p valve replacement, gout admitted 04/28/2017 with right elbow pain. He was found to have pulmonary congestion with marked elevated pro-BNP, consistent with acute CHF. - Current Medication List Current Medications: Active Medications Acetaminophen (Tylenol -) 650 mg PO Q6H PRN PRN Reason: FEVER OR PAIN Acetaminophen/Codeine Phosphate (Tylenol # 3 -) 1 tab PO Q8H PRN PRN Reason: FEVER OR PAIN Albuterol/Ipratropium (Duoneb -) 1 amp NEB QIDR [facility] Last Admin: 04/30/17 11:44 Dose: 1 amp Aspirin (Ecotrin -) 81 mg PO DAILY [facility] Last Admin: 04/30/17 10:11 Dose: 81 mg Atenolol (Tenormin -) 50 mg PO BID [facility] Last Admin: 04/30/17 10:11 Dose: 50 mg Diltiazem HCl (Cardizem Cd -) 240 mg PO DAILY [facility] Last Admin: 04/30/17 10:11 Dose: 240 mg Escitalopram Oxalate (Lexapro -) 10 mg PO DAILY [facility] Last Admin: 04/30/17 10:11 Dose: 10 mg Furosemide (Lasix Injection -) 40 mg IVPUSH BID@0600,1400 [facility] Last Admin: 04/30/17 06:07 Dose: 40 mg Hydralazine HCl (Apresoline -) 25 mg PO TID [facility] Last Admin: 04/30/17 06:07 Dose: 25 mg Methylprednisolone Sodium Succinate (Solu-Medrol -) 40 mg IVPB ONCE ONE Stop: 04/30/17 17:01 Prednisone (Deltasone -) 60 mg PO DAILY [facility] Tamsulosin HCl (Flomax -) 0.4 mg PO DAILY@0830 [facility] Last Admin: 04/30/17 10:11 Dose: 0.4 mg Warfarin Sodium (Coumadin -) 5 mg PO DAILY@1800 [facility] - Objective Vital Signs: Vital Signs Temperature 98.2 F 04/30/17 09:05 Pulse Rate 60 04/30/17 09:05 Respiratory Rate 16 04/30/17 09:05 Blood Pressure 142/68 04/30/17 09:05 O2 Sat by Pulse Oximetry (%) 95 04/29/17 21:00 Constitutional: Yes: No Distress Neck: Yes: WNL Cardiovascular: Yes: Regular Rate and Rhythm, S1, S2. No: JVD Respiratory: Yes: CTA Bilaterally Gastrointestinal: Yes: WNL Extremities: Yes: WNL Edema: No Labs: CBC, BMP 04/30/17 05:35 04/30/17 05:35 INR, PTT INR 1.62 (0.82-1.09) H 04/30/17 10:30 - ....Imaging Chest X-ray: Report Reviewed Problem List - Problems (1) Afib Code(s): I48.91 - UNSPECIFIED ATRIAL FIBRILLATION Qualifiers: Atrial fibrillation type: chronic Qualified Code(s): I48.2 - Chronic atrial fibrillation (2) CAD (coronary artery disease) Code(s): I25.10 - ATHSCL HEART DISEASE OF [place] CORONARY ARTERY W/O ANG PCTRS Qualifiers: Coronary Disease-Associated Artery/Lesion type: unspecified vessel or lesion type (3) CHF (congestive heart failure) Code(s): I50.9 - HEART FAILURE, UNSPECIFIED Qualifiers: Congestive heart failure type: unspecified congestive heart failure type Congestive heart failure chronicity: unspecified congestive heart failure chronicity Qualified Code(s): I50.9 - Heart failure, unspecified Assessment/Plan 86-year-old man with a PMHx of HTN, CAD, s/p CABG, pacemaker, atrial fibrillation on warfarin, s/p valve replacement, gout admitted 04/28/2017 with right elbow pain. He was found to have pulmonary congestion with marked elevated pro-BNP, consistent with acute CHF. 1) Acute on chronic diastolic CHF -Patient comfortable lying flat Volume status improved on exam. CXR repeated with atelectasis no comments on congestion. Would change to furosemide 40mg PO bid Monitor lytes and bun/cr Echo with normal LV systolic function and elevated RV pressures 2) CAD, s/p CABG. Stable no recurrent angina Continue aspirin and atenolol. 3) Atrial fibrillation. Currently in paced rhythm. Continue atenolol and cardizem. Continue Warfarin for stroke prevention to keep INR 2-3.
[2017-04-30 15:36] VITALS: BP 169/75; PULSE 61; TEMP 97.7
[2017-04-30] MEDS ORDERED: methylPREDNISolone NA SUCC 40 MG/1 ML VIAL IVPB ONE (17:00)
[2017-04-30] MEDS ORDERED: WARFARIN NA 5 MG TABLET (UD) PO SCH (18:00)
[2017-05-01] MEDS ORDERED: predniSONE 20 MG TABLET (UD) PO SCH (10:00)
== END 2017-04-30 18:35 | disposition home or self-care (01) | DRG 553 ==
LOC: JER 10:32 → JERBED 17:03 → J4W 21:41 → OBSVTOIN 23:37
PROVIDERS: ADMIT Family Medicine; ATTEND Family Medicine
DX: M10.9 Gout, unspecified (principal); I50.33 Acute on chronic diastolic (congestive) heart failure; I11.0 Hypertensive heart disease with heart failure; I25.10 Atherosclerotic heart disease of native coronary artery without angina pectoris; I48.91 Unspecified atrial fibrillation; F03.90 Unspecified dementia, unspecified severity, without behavioral disturbance, psychotic disturbance, mood disturbance, and anxiety; J44.9 Chronic obstructive pulmonary disease, unspecified; E78.00 Pure hypercholesterolemia, unspecified; K63.5 Polyp of colon; N40.0 Benign prostatic hyperplasia without lower urinary tract symptoms; R53.1 Weakness; M19.011 Primary osteoarthritis, right shoulder; N28.9 Disorder of kidney and ureter, unspecified; Z95.0 Presence of cardiac pacemaker; Z95.1 Presence of aortocoronary bypass graft; Z95.2 Presence of prosthetic heart valve; Z87.891 Personal history of nicotine dependence
CPT/HCPCS: 36415; 71010-TC; 71020-TC; 73030-TC-RT; 73070-TC-RT; 80053; 83880; 84484; 84550; 85025; 85610; 85651; 86140; 93005; 93010; 93306-TC; 94640; 97116-GP; 97161-GP; 99284-25; G0378

== ENCOUNTER 2017-06-23 12:30 | Inpatient (IN) | payer OTHER ==
--- NOTE | 2017-06-23 12:40 | PDOC ---
History of Present Illness <Lea Hernandez - Last Filed: 06/23/17 17:12> - General History Source: Patient, Spouse Exam Limitations: Dementia, Language Barrier - History of Present Illness Initial Comments: 06/23/17 13:05 87M with pmh of HTN, CAD s/p cabg, Afib on warfarin, CHF and gout brought to the ED by ambulance for AMS and left elbow pain since last night. EMS found him to have a blood pressure of 280/134 which they corrected with 0.8mg of sublingual nitro to 209/112. Patient sole current complaint is his left elbow but feel otherwise comfortable. He was recently admitted for a gout flare to the right elbow in April for which he was prescribed Allopurinol although the pharmacy denies the patient ever taking it. 06/23/17 13:21 06/23/17 18:30 <Dustin Negrete - Last Filed: 06/23/17 19:05> - General Stated Complaint: Altered Mental Status Time Seen by Provider: 06/23/17 12:38 Past History <Lea Hernandez - Last Filed: 06/23/17 17:12> - Past Medical History Anemia: No Asthma: No Cancer: No Cardiac Disorders: Yes (CAD, CABG, PPM(medtronic) a-fib) CVA: No COPD: Yes CHF: Yes Dementia: No Diabetes: No GI Disorders: No Disorders: No HTN: Yes Hypercholesterolemia: Yes Liver Disease: No Seizures: No Thyroid Disease: No - Surgical History Abdominal Surgery: No Appendectomy: No Cardiac Surgery: Yes (cardiac bypass, pacemaker) Cholecystectomy: No Lung Surgery: No Neurologic Surgery: No Orthopedic Surgery: No - Suicide/Smoking/Psychosocial Hx Smoking Status: Yes Smoking History: Former smoker Have you smoked in the past 12 months: No Number of Cigarettes Smoked Daily: 0 If you are a former smoker, when did you quit?: 40 YRS AGO Hx Alcohol Use: No Drug/Substance Use Hx: No Substance Use Type: None Hx Substance Use Treatment: No <Dustin Negrete - Last Filed: 06/23/17 19:05> - Past Medical History Allergies/Adverse Reactions: Allergies Allergy/AdvReac Type Severity Reaction Status Date / Time No Known Allergies Allergy Verified 06/23/17 12:58 Home Medications: Ambulatory Orders Atenolol [Tenormin -] 50 mg PO BID 05/15/13 Tamsulosin HCl 0.4 mg PO DAILY 04/23/15 Aspirin Coated [Ecotrin -] 81 mg PO DAILY #30 tablet.ec 12/29/15 Furosemide [Lasix -] 40 mg PO DAILY tablet 02/26/16 Warfarin Sodium 4 mg PO HS 04/28/17 Diltiazem Cd [Cardizem Cd -] 240 mg PO DAILY #30 cap.cd.24h MDD 1 04/30/17 Atorvastatin Ca [Lipitor] 40 mg PO HS 06/23/17 Cilostazol 100 mg PO DAILY 06/23/17 Donepezil HCl 5 mg PO DAILY 06/23/17 Memantine HCl [Namenda Xr] 14 mg PO DAILY 06/23/17 Review of Systems - Review of Systems Constitutional: No: Symptoms Reported Respiratory: No: Symptoms reported, Cough, Shortness of Breath <Dustin Negrete - Last Filed: 06/23/17 19:05> *Physical Exam - Vital Signs Last Vital Signs Temp Pulse Resp BP Pulse Ox 97.5 F L 64 17 210/116 97 06/23/17 12:52 06/23/17 13:30 06/23/17 13:30 06/23/17 13:30 06/23/17 13:30 <Lea Hernandez - Last Filed: 06/23/17 17:12> - Physical Exam General Appearance: Yes: Nourished, Appropriately Dressed. No: Apparent Distress HEENT: positive: Normal ENT Inspection Neck: positive: Trachea midline. negative: Tender Respiratory/Chest: positive: Lungs Clear, Normal Breath Sounds. negative: Chest Tender Cardiovascular: positive: Irregularly Irregular Vascular Pulses: Dorsalis-Pedis (R): 2+, Doralis-Pedis (L): 2+ Gastrointestinal/Abdominal: positive: Normal Bowel Sounds, Flat, Soft. negative : Tender Extremity: positive: Normal Capillary Refill, Tender, Erythema (;left elbow flexed at 90 degrees, warm, swollen with palpable fluid and erythematous joint compared to right elbow). negative: Normal Range of Motion (cant bend elbow beyond 90 degree), Coldness Neurologic: positive: Fully Oriented, Alert, Normal Mood/Affect, Normal Response , Responsive <Dustin Negrete - Last Filed: 06/23/17 19:05> Procedures - Arthrocentesis Indication: Septic Joint, Crystals (Gout/Psuedogout, Inflammation, Reduce Pain Arthrocentesis Site: left: elbow Flexion: >30 degrees Betadine Prep: Yes Sterile Dressing Applied: Yes Dry Tap: No Fluid Color: Yellow Fluid Amount mL: 15 Anesthesia: 1% Lidocaine Needle Size (guage): 22g Complications: No <Lea Hernandez - Last Filed: 06/23/17 17:12> - Consent Consent obtained: Verbal, From Patient, From Guardians - Arthrocentesis Indication: Septic Joint, Crystals (Gout/Psuedogout, Inflammation Arthrocentesis Site: left: elbow Flexion: >30 degrees Betadine Prep: No (CHLOROPREP) Sterile Dressing Applied: Yes Dry Tap: No Fluid Color: Straw colored Fluid Amount mL: 10 Anesthesia: 1% Lidocaine Needle Size (guage): 22g Complications: No <Dustin Negrete - Last Filed: 06/23/17 19:05> ED Treatment Course - LABORATORY CBC & Chemistry Diagram: 06/23/17 13:10 06/23/17 13:10 - ADDITIONAL ORDERS Additional order review: Laboratory Results 06/23/17 06/23/17 06/23/17 14:21 13:52 13:45 PT with INR 19.10 H INR 1.74 H Sodium Potassium Chloride Carbon Dioxide Anion Gap BUN Creatinine Creat Clearance w eGFR Random Glucose Lactic Acid 1.0 Uric Acid Calcium Total Bilirubin AST ALT Alkaline Phosphatase Total Protein Albumin Urine Color Straw Urine Appearance Clear Urine pH 6.0 Urine Protein Negative Urine Glucose (UA) Negative Urine Ketones Negative Urine Blood Negative Urine Nitrite Negative Urine Bilirubin Negative Urine Urobilinogen Negative 06/23/17 13:10 PT with INR INR Sodium 144 Potassium 4.3 Chloride 109 H Carbon Dioxide 25 Anion Gap 10 BUN 48 H Creatinine 1.7 H Creat Clearance w eGFR 38.41 Random Glucose 82 D Lactic Acid Uric Acid 8.2 H Calcium 8.5 Total Bilirubin 0.9 D AST 18 ALT 18 Alkaline Phosphatase 69 Total Protein 6.1 L Albumin 3.3 L Urine Color Urine Appearance Urine pH Urine Protein Urine Glucose (UA) Urine Ketones Urine Blood Urine Nitrite Urine Bilirubin Urine Urobilinogen 06/23/17 13:10 RBC 3.94 L MCV 94.6 MCHC 32.5 RDW 15.3 MPV 9.4 Neutrophils % 72.5 D Lymphocytes % 13.2 D Monocytes % 12.0 H D Eosinophils % 2.0 D Basophils % 0.3 D - RADIOLOGY Radiology Studies Ordered: Category Date Time Status CHEST X-RAY PORTABLE* [RAD] Stat Radiology 06/23/17 15:07 Ordered - Medications Given in the ED: ED Medications Discontinued Medications Generic Name Dose Route Start Last Admin Trade Name Alex PRN Reason Stop Dose Admin Atenolol 50 mg 06/23/17 13:03 06/23/17 13:45 Tenormin - PO 06/23/17 13:04 50 mg ONCE ONE Administration Diltiazem HCl 240 mg 06/23/17 13:02 06/23/17 13:45 Cardizem Cd - PO 06/23/17 13:03 240 mg ONCE ONE Administration Furosemide 40 mg 06/23/17 13:03 06/23/17 13:45 Lasix Injection - IVPUSH 06/23/17 13:04 40 mg ONCE ONE Administration <Lea Hernandez - Last Filed: 06/23/17 17:12> - LABORATORY CBC & Chemistry Diagram: 06/23/17 13:10 06/23/17 13:10 <Dustin Negrete - Last Filed: 06/23/17 19:05> Medical Decision Making - Medical Decision Making 06/23/17 14:13 87M with afib on Coumadin, HTN, CHF and recurrent history of gout flare present to the ED with ams and painful left elbow. Gouty arthritis vs septic arthritis. 06/23/17 14:58 CBC, CMP. uric acid sent, home medications provided. Left Elbow arthrocentesis performed . Synovial fluid panel results pending. 06/23/17 17:29 Left Elbow xray: 1. No acute displaced fracture or dislocation in the left elbow. 2. Left elbow joint effusion. 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 A slight calcified soft tissue neoplasm L2 be less likely, but cannot be entirely excluded. Please correlate clinically. Comparison with prior imaging of the left elbow is recommended, if available. MRI may be helpful. 06/23/17 17:31 synovial fluid analysis still pending. presence of crystals still pending... Patient admited to floor after conversation between Dr. Hernandez and Dr. Sandoval 06/23/17 19:03 <Dustin Negrete - Last Filed: 06/23/17 19:05> *DC/Admit/Observation/Transfer - Discharge Dispostion Admit: Yes <Lea Hernandez - Last Filed: 06/23/17 17:12> - Discharge Dispostion Admit: Yes <Dustin Negrete - Last Filed: 06/23/17 19:05> Diagnosis at time of Disposition: Cellulitis of elbow, Joint effusion of elbow - Discharge Dispostion Condition at time of disposition: Guarded
[2017-06-23] MEDS ORDERED: ATENOLOL 50 MG TABLET (FP) PO ONE (13:03)
[2017-06-23] MEDS ORDERED: FUROSEMIDE 40 MG/4 ML INJECTABLE VIAL IVPUSH ONE (13:03)
--- NOTE | 2017-06-23 13:10 | PDOC ---
Attending Attestation - Resident Resident Name: NegreteuDstin - HPI HPI: 06/23/17 13:14 Pt comes with exteme left elbow pain; no history of fall, however Left elbow is swollen and hot and the skin is red and slightly cellulitic - Physicial Exam PE: 06/23/17 13:15 Agree with resident exam. Pt's arm is pronated; he has too much pain when we attempt to supinate the patient. - Medical Decision Making 06/23/17 17:10 Pt had his left elbow joint tapped by ourselves. We removed 12 cc's of yellowish cloudy and slightluy blood tinged synovial fluid from the elbow joint under sterile technique. 5cc of 1% lidocaine infiltrated into the joint space.
[2017-06-23] MEDS ORDERED: VANCOMYCIN 1,000 MG in DEXTROSE 5%-WATER - 250 ML IVPB SCH (13:15)
[2017-06-23] MEDS ORDERED: ATENOLOL 25 MG TABLET (FP) ONE (13:29)
[2017-06-23] MEDS ORDERED: FUROSEMIDE 40 MG/4 ML INJECTABLE VIAL ONE ×2 (13:29→16:07)
[2017-06-23] MEDS ORDERED: VANCOMYCIN 1 GRAM (PRE-DOCKED) 250 ML IVPB ONE (13:39)
[2017-06-23 14:02] LABS: BASOPHIL 0.3 % (0-2.0); MCH 30.7 pg (25.7-33.7); MCHC 32.5 g/dl (32.0-35.9); MEAN CELL VOLUME 94.6 fl (80-96); MEAN PLT VOLUME 9.4 fl (7.5-11.1); NEUTROPHILS 72.5 % (42.8-82.8); PLATELET COUNT 95 K/MM3 (134-434); RDW 15.3 % (11.9-15.9); WHITE BLOOD COUNT 6.8 K/mm3 (4.0-10.0)
[2017-06-23 14:22] LABS: INR 1.74 (0.82-1.09); PROTHROMBIN TIME (PATIENT) 19.1 SEC (9.98-11.88)
[2017-06-23 14:40] LABS: URINE APPEARANCE CLEAR; URINE BILIRUBIN NEGATIVE (NEGATIVE); URINE BLOOD NEGATIVE (NEGATIVE); URINE COLOR STRAW; URINE GLUCOSE (UA) NEGATIVE (NEGATIVE); URINE KETONE NEGATIVE (NEGATIVE); URINE NITRITE NEGATIVE (NEGATIVE); URINE PROTEIN NEGATIVE (NEGATIVE); URINE UROBILINOGEN NEGATIVE mg/dL (0.2-1.0)
[2017-06-23] MEDS ORDERED: LIDOCAINE HCL 1%, 10 MG/ML (20ML VIAL) ONE (14:45)
[2017-06-23 14:47] LABS: ALBUMIN 3.3 g/dl (3.4-5.0); ANION GAP 10 (8-16); CALCIUM 8.5 mg/dL (8.5-10.1); CO2 25 mmol/L (21-32); CREATININE 1.7 mg/dL (0.7-1.3); GLUCOSE,RANDOM 82 mg/dL (74-106); SGOT/AST 18 U/L (15-37); SGPT/ALT 18 U/L (12-78); URIC ACID 8.2 mg/dL (2.6-7.2)
[2017-06-23 14:49] LABS: ALK PHOS 69 U/L (45-117); BILIRUBIN,TOTAL 0.9 mg/dL (0.2-1.0); TOT PROT 6.1 g/dl (6.4-8.2)
[2017-06-23] MEDS ORDERED: FUROSEMIDE 40 MG/4 ML INJECTABLE VIAL IVPB ONE (16:00)
[2017-06-23 16:01] LABS: GLUCOSE,SYNOVIAL FLUID 3 mg/dL; TOTAL PROTEIN,SYNOVIAL FLUID 4 gm/dL
[2017-06-23] MEDS ORDERED: ALLOPURINOL 100 MG TABLET (FP) PO ONE (17:16)
[2017-06-23] MEDS ORDERED: COLCHICINE 0.6 MG TABLET (FP) PO ONE (17:16)
[2017-06-23] MEDS ORDERED: COLCHICINE 0.6 MG TABLET (FP) ONE ×2 (17:26→17:28)
[2017-06-23] MEDS ORDERED: ALLOPURINOL 100 MG TABLET (FP) ONE (17:26)
[2017-06-23] MEDS ORDERED: morphine CARPU-JECT 2 MG/1 ML DISP.SYRIN IVPUSH ONE (17:33)
[2017-06-23] MEDS ORDERED: morphine CARPU-JECT 2 MG/1 ML DISP.SYRIN ONE (17:44)
[2017-06-23] MEDS ORDERED: WARFARIN NA 1 MG TABLET (FP) ONE (19:40)
[2017-06-23 19:44] LABS: SYNOVIAL FLUID LYMPHOCYTES 1 %; SYNOVIAL FLUID MONOCYTES 2 %; SYNOVIAL FLUID NEUTROPHILS 93 %
[2017-06-23] MEDS: WARFARIN NA 2 MG TABLET (UD) PO SCH (19:49)
[2017-06-23 21:01] LABS: URINE LEUK ESTERASE Negative (NEGATIVE)
[2017-06-23] MEDS ORDERED: FLU VACCINE QUAD 60 MCG/0.5 ML (MDV 17-18) IM ONE (21:15)
[2017-06-23] MEDS: ATENOLOL 50 MG TABLET (FP) PO SCH (21:44)
[2017-06-23] MEDS: ATORVASTATIN CA 40 MG TABLET (FP) PO SCH (21:45)
[2017-06-23] MEDS ORDERED: VANCOMYCIN 1 GRAM (PRE-DOCKED) 250 ML IVPB SCH (23:22)
[2017-06-24] MEDS ORDERED: VANCOMYCIN 1 GRAM (PRE-DOCKED) 250 ML IVPB SCH (01:00)
[2017-06-24] MEDS ORDERED: VANCOMYCIN 1 GRAM (PRE-DOCKED) 250 ML IVPB ONE (01:00)
[2017-06-24 06:57] LABS: BASOPHIL 0.4 % (0-2.0); EOSINOPHIL 1.6 % (0-4.5); MCH 30.7 pg (25.7-33.7); MCHC 32.7 g/dl (32.0-35.9); MEAN CELL VOLUME 93.9 fl (80-96); MEAN PLT VOLUME 9.7 fl (7.5-11.1); PLATELET COUNT 106 K/MM3 (134-434); RDW 15.4 % (11.9-15.9); WHITE BLOOD COUNT 6.3 K/mm3 (4.0-10.0)
[2017-06-24 07:11] LABS: ALBUMIN 3.5 g/dl (3.4-5.0); ALK PHOS 72 U/L (45-117); ANION GAP 12 (8-16); BILIRUBIN,TOTAL 1.2 mg/dL (0.2-1.0); CALCIUM 8.4 mg/dL (8.5-10.1); CO2 26 mmol/L (21-32); CREATININE 1.7 mg/dL (0.7-1.3); GLUCOSE,RANDOM 94 mg/dL (74-106); SGOT/AST 25 U/L (15-37); SGPT/ALT 19 U/L (12-78); TOT PROT 6.3 g/dl (6.4-8.2)
--- NOTE | 2017-06-24 08:17 | HP ---
Admitting History and Physical - Admission History of Present Illness: 87M with pmh of HTN, CAD s/p cabg, Afib on warfarin, CHF and gout brought to the ED by ambulance for AMS and left elbow pain since last night. EMS found him to have a blood pressure of 280/134 which they corrected with 0.8mg of sublingual nitro to 209/112. Patient sole current complaint is his left elbow but feel otherwise comfortable. He was recently admitted for a gout flare to the right elbow in April for which he was prescribed Allopurinol although the pharmacy denies the patient ever taking it. THIS AM PT SIGNIFICANTLY BETTER - Past Medical History [employer]: Yes: Dementia Cardiovascular: Yes: AFIB, CAD (s/p CABG), CHF Pulmonary: Yes: COPD Gastrointestinal: Yes: Other (colonic polyps) Renal/: Yes: Renal Inusuff Musculoskeletal: Yes: Osteoarthritis Rheumatology: Yes: Gout - Past Surgical History Past Surgical History: Yes: CABG, Permanent Pacemaker, Valve Replacement - Smoking History Smoking history: Former smoker Have you smoked in the past 12 months: No Aproximately how many cigarettes per day: 0 If you are a former smoker, when did you quit?: 40 YRS AGO - Alcohol/Substance Use Hx Alcohol Use: No - Social History History of Recent Travel: No Home Medications - Allergies Allergies/Adverse Reactions: Allergies Allergy/AdvReac Type Severity Reaction Status Date / Time No Known Allergies Allergy Verified 06/23/17 12:58 - Home Medications Home Medications: Ambulatory Orders Atenolol [Tenormin -] 50 mg PO BID 05/15/13 Tamsulosin HCl 0.4 mg PO DAILY 04/23/15 Aspirin Coated [Ecotrin -] 81 mg PO DAILY #30 tablet.ec 12/29/15 Furosemide [Lasix -] 40 mg PO DAILY tablet 02/26/16 Warfarin Sodium 4 mg PO HS 04/28/17 Diltiazem Cd [Cardizem Cd -] 240 mg PO DAILY #30 cap.cd.24h MDD 1 04/30/17 Atorvastatin Ca [Lipitor] 40 mg PO HS 06/23/17 Cilostazol 100 mg PO DAILY 06/23/17 Donepezil HCl 5 mg PO DAILY 06/23/17 Memantine HCl [Namenda Xr] 14 mg PO DAILY 06/23/17 Colchicine [Colcrys -] 0.6 mg PO DAILY #30 tablet 06/25/17 Prednisone [Deltasone -] 30 mg PO DAILY #18 tablet 06/25/17 Review of Systems - Review of Systems Cardiovascular: denies: Chest Pain Respiratory: reports: SOB, Wheezing Gastrointestinal: denies: Abdominal Pain Musculoskeletal: reports: Extremity Pain Neurological: reports: No Symptoms Physical Examination Vital Signs: Vital Signs Temperature 98.8 F 06/24/17 06:00 Pulse Rate 62 06/24/17 06:00 Respiratory Rate 20 06/24/17 06:00 Blood Pressure 179/62 06/24/17 06:00 O2 Sat by Pulse Oximetry (%) 95 06/23/17 22:01 Labs: CBC, BMP 06/24/17 06:15 06/24/17 06:15 Problem List - Problems (1) Acute exacerbation of chronic obstructive pulmonary disease (COPD) Assessment/Plan: IV STEROIDS NEBS Code(s): J44.1 - CHRONIC OBSTRUCTIVE PULMONARY DISEASE W (ACUTE) EXACERBATION (2) Afib Assessment/Plan: COUMADIN FOLLOW INR Code(s): I48.91 - UNSPECIFIED ATRIAL FIBRILLATION Qualifiers: Atrial fibrillation type: chronic Qualified Code(s): I48.2 - Chronic atrial fibrillation; I48.2 - Chronic atrial fibrillation; I48.2 - Chronic atrial fibrillation; I48.2 - Chronic atrial fibrillation (3) Cellulitis of elbow Assessment/Plan: ON ANCEF ID Code(s): L03.119 - CELLULITIS OF UNSPECIFIED PART OF LIMB (4) Gout Assessment/Plan: ON COLCRYS ON STEROIDS Code(s): M10.9 - GOUT, UNSPECIFIED Qualifiers: Gout site: elbow Gout etiology: unspecified cause Chronicity: acute Laterality: right Qualified Code(s): M10.9 - Gout, unspecified ; M10.9 - Gout, unspecified (5) CKD (chronic kidney disease) Assessment/Plan: MONITOR ON CURRENT MEDS Code(s): N18.9 - CHRONIC KIDNEY DISEASE, UNSPECIFIED
[2017-06-24] MEDS ORDERED: PT OWN MED DRAWER 7, Y5N ONE ×2 (09:38→12:08)
[2017-06-24] MEDS: methylPREDNISolone NA SUCC 40 MG/1 ML VIAL IVPB SCH ×3 (09:44→22:28)
[2017-06-24] MEDS: ATENOLOL 50 MG TABLET (FP) PO SCH ×2 (09:44→22:28)
[2017-06-24] MEDS: ASPIRIN COATED 81 MG TABLET.EC PO SCH (09:44)
[2017-06-24] MEDS: TAMSULOSIN HCL 0.4 MG CAP.ER.24H (FP) PO SCH (09:44)
[2017-06-24] MEDS: DONEPEZIL HCL 5 MG TABLET (FP) PO SCH (09:45)
[2017-06-24] MEDS ORDERED: PATIENT'S OWN MEDICATION (NON-FORMULARY) (Memantine Hcl [Namenda Xr] 14 MG) PO SCH (10:00)
[2017-06-24] MEDS ORDERED: COLCHICINE 0.6 MG TABLET (FP) PO SCH (10:00)
[2017-06-24] MEDS ORDERED: FUROSEMIDE 40 MG TABLET (FP) PO SCH (10:00)
[2017-06-24 10:11] LABS: INR 1.97 (0.82-1.09); PROTHROMBIN TIME (PATIENT) 22.3 SEC (9.98-11.88)
[2017-06-24] MEDS: ALBUTEROL SO4 2.5/IPRATROPIUM 0.5 INH SOL 3 ML VIAL.NEB. NEB SCH ×3 (11:29→23:02)
[2017-06-24] MEDS: CILOSTAZOL 100 MG TABLET PO SCH (11:47)
--- NOTE | 2017-06-24 11:52 | EKG ---
Test Reason : Blood Pressure : / mmHG Vent. Rate : 060 BPM Atrial Rate : 065 BPM P-R Int : 000 ms QRS Dur : 184 ms QT Int : 528 ms P-R-T Axes : 000 252 057 degrees QTc Int : 528 ms Ventricular-paced rhythm ABNORMAL ECG WHEN COMPARED WITH ECG OF 23-JUN-2017 12:40, ELECTRONIC VENTRICULAR PACEMAKER HAS REPLACED ATRIAL FIBRILLATION Confirmed by MICHELLE NIEVES MD ([id number]) on 06/24/2017 11:51:44 AM Referred By: CHRISTINE DUMAS DR Confirmed By:MICHELLE NIEVES MD
--- NOTE | 2017-06-24 11:57 | EKG ---
Test Reason : Blood Pressure : / mmHG Vent. Rate : 069 BPM Atrial Rate : 202 BPM P-R Int : 000 ms QRS Dur : 092 ms QT Int : 422 ms P-R-T Axes : 000 103 -43 degrees QTc Int : 452 ms ATRIAL FIBRILLATION RIGHTWARD AXIS ANTEROSEPTAL INFARCT , AGE UNDETERMINED T WAVE ABNORMALITY, CONSIDER INFEROLATERAL ISCHEMIA ABNORMAL ECG WHEN COMPARED WITH ECG OF 28-APR-2017 19:52, ATRIAL FIBRILLATION HAS REPLACED ELECTRONIC VENTRICULAR PACEMAKER Confirmed by MICHELLE NIEVES MD ([id number]) on 06/24/2017 11:57:10 AM Referred By: Confirmed By:MICHELLE NIEVES MD
[2017-06-24 12:45] LABS: CRYSTALS,SYNOVIAL FLUID NEGATIVE
--- NOTE | 2017-06-24 13:54 | CONSULT ---
Consultation: CONSULT REQUEST: INFECTIOUS DISEASE HISTORY OF PRESENT ILLNESS: Mr Olvera is an 87yo M with PMHx of CAD (s/p CABG), Afib (on Warfarin), HTN, CHF, ?CKD, Gout who presented with L elbow pain for 3 days. He is mostly Dominican speaking, was at bedside to translate. The pain was consistent with prior gout flares. states that she noticed his elbow was swollen and mildly erythematous up to the shoulder. He denies local trauma to the area, denies unusual eating habits (though has been eating lots of beans recently), denies fevers/chills. In the ER, 15cc of synovial fluid characterized as "hazy white, very viscous" was drained showing 75,000 WBC with 93 neutrophils and no crystals. He was given 1 dose of Vancomycin 1g. He was also given IV medrol for possible COPD exac. The patient was also found to have BP of 280/134, corrected with antihypertensives. Since arriving to the floors, the patient has dramatically improved. The states the elbow is no longer red, not edematous. His pain has decreased. He feels almost back to normal. He denies smoking/drinking/drugs. Denies recent travel OOC Home Medication List Medication Instructions Recorded Confirmed Type Atenolol [Tenormin -] 50 mg PO BID 05/15/13 06/23/17 History Tamsulosin HCl 0.4 mg PO DAILY 04/23/15 06/23/17 History Warfarin Sodium 4 mg PO HS 04/28/17 06/23/17 History Atorvastatin Ca [Lipitor] 40 mg PO HS 06/23/17 06/23/17 History Cilostazol 100 mg PO DAILY 06/23/17 06/23/17 History Donepezil HCl 5 mg PO DAILY 06/23/17 06/23/17 History Memantine HCl [Namenda Xr] 14 mg PO DAILY 06/23/17 06/23/17 History Active Medications Generic Name Dose Route Start Last Admin Trade Name Freq PRN Reason Stop Dose Admin Albuterol/Ipratropium 1 amp 06/24/17 12:00 06/24/17 11:29 Duoneb - NEB 1 amp QIDR JOHNATHAN Administration Aspirin 81 mg 06/24/17 10:00 06/24/17 09:44 Ecotrin - PO 81 mg DAILY JOHNATHAN Administration Atenolol 50 mg 06/23/17 22:00 06/24/17 09:44 Tenormin - PO 50 mg BID JOHNATHAN Administration Atorvastatin Calcium 40 mg 06/23/17 22:00 06/23/17 21:45 Lipitor - PO 40 mg HS JOHNATHAN Administration Cilostazol 100 mg 06/24/17 10:00 06/24/17 11:47 Pletal - PO 100 mg DAILY JOHNATHAN Administration Colchicine 0.6 mg 06/24/17 10:00 06/24/17 09:45 Colcrys - PO 0.6 mg DAILY JOHNATHAN Administration Diltiazem HCl 240 mg 06/24/17 10:00 06/24/17 09:44 Cardizem Cd - PO 240 mg DAILY JOHNATHAN Administration Donepezil HCl 5 mg 06/24/17 10:00 06/24/17 09:45 Aricept - PO 5 mg DAILY JOHNATHAN Administration Furosemide 40 mg 06/24/17 10:00 06/24/17 09:45 Lasix - PO 40 mg DAILY JOHNATHAN Administration Vancomycin HCl 250 mls @ 250 mls/hr 06/24/17 01:00 Vancomycin (Pre-Docked) IVPB BID@0100,1300 [facility] Protocol Methylprednisolone Sodium Succinate 40 mg 06/24/17 09:00 06/24/17 09:44 Solu-Medrol - IVPB 40 mg Q6H-IV [facility] Administration Non-Formulary Medication 14 mg 06/24/17 10:00 Memantine Hcl [Namenda Xr] PO DAILY [facility] Tamsulosin HCl 0.4 mg 06/24/17 10:00 06/24/17 09:44 Flomax - PO 0.4 mg DAILY [facility] Administration Warfarin Sodium 4 mg 06/23/17 19:45 06/23/17 19:49 Coumadin - PO 4 mg DAILY@1800 JOHNATHAN Administration REVIEW OF SYSTEMS: CONSTITUTIONAL: Absent: fever, chills, diaphoresis, generalized weakness, malaise, loss of appetite, weight change HEENT: Absent: rhinorrhea, nasal congestion, throat pain, throat swelling, difficulty swallowing, mouth swelling, ear pain, eye pain, visual changes CARDIOVASCULAR: Absent: chest pain, syncope, palpitations, irregular heart rate, lightheadedness , peripheral edema RESPIRATORY: Absent: cough, shortness of breath, dyspnea with exertion, orthopnea, wheezing, stridor, hemoptysis GASTROINTESTINAL: Absent: abdominal pain, abdominal distension, nausea, vomiting, diarrhea, constipation, melena, hematochezia GENITOURINARY: Absent: dysuria, frequency, urgency, hesitancy, hematuria, flank pain, genital pain MUSCULOSKELETAL: Absent: myalgia, arthralgia, joint swelling, back pain, neck pain Present: arthralgia SKIN: Absent: rash, itching, pallor HEMATOLOGIC/IMMUNOLOGIC: Absent: easy bleeding, easy bruising, lymphadenopathy, frequent infections ENDOCRINE: Absent: unexplained weight gain, unexplained weight loss, heat intolerance, cold intolerance NEUROLOGIC: Absent: headache, focal weakness or paresthesias, dizziness, unsteady gait, seizure, mental status changes, bladder or bowel incontinence PSYCHIATRIC: Absent: anxiety, depression, suicidal or homicidal ideation, hallucinations. PHYSICAL EXAMINATION Vital Signs Temperature 98.6 F 06/24/17 10:00 Pulse Rate 60 06/24/17 10:00 Respiratory Rate 18 06/24/17 10:00 Blood Pressure 168/98 06/24/17 10:00 O2 Sat by Pulse Oximetry (%) 96 06/24/17 09:00 GEN: AAOx3, NAD, Lying very comfortably, just finished walking with PT HEENT: PERRLA, EOMi CV: S1, S2, irregularly irregular rhythm LUNG: CTABL ABD: Soft, NT, ND, normoactive BS MSK: L elbow - not warm, not erythematous, very minimal edema, decreased flexion due to pain R arm - no erythema, no edema Laboratory Tests 06/23/17 06/23/17 06/23/17 15:00 15:00 15:23 Synovial WBC 75,141 Synovial RBC 3.404 Synovial Neutrophils 93 Synovial Lymphocytes 1 Synovial Monocytes 2 Synovial Diff Comment Synovial Crystals Negative Synovial Glucose 3 Synovial Total Protein 4 Synovial Uric Acid TNP Synovial LDH 565 Synovial Amylase 67 CBC, BMP 06/24/17 06:15 06/24/17 06:15 Laboratory Tests 06/24/17 06:15 Creat Clearance w eGFR 38.41 ASSESSMENT/PLAN: Mr Olvera is an 87yo M with PMHx of CAD (s/p CABG), Afib (on Warfarin), HTN, CHF, ?CKD, Gout who presented with L elbow pain for 3 days. # Inflammatory Gout - dramatically improved - Likely inflammatory collection assoc w/ gout - Crystals negative in fluid, no culture sent - Better with IV medrol - Stop antibiotics Discussed w/ Dr Urena. Please call if needed. Jossie Nicholson MD - PGY1 Infectious Disease Visit type - Emergency Visit Emergency Visit: No - New Patient This patient is new to me today: No - Critical Care Critical Care patient: No
--- NOTE | 2017-06-24 15:16 | PN ---
Teaching Attending Note Name of Resident: Jossie Nicholson ATTENDING PHYSICIAN STATEMENT I saw and evaluated the patient. I reviewed the resident's note and discussed the case with the resident. I agree with the resident's findings and plan as documented. SUBJECTIVE:Dramatic improvement over night ?? Can find no record of a culture being sent OBJECTIVE:No erythema joint swelling Just small sq edema nontender no drainage ASSESSMENT AND PLAN: Laboratory Tests 06/23/17 06/23/17 06/23/17 13:10 15:00 15:23 WBC Hgb Plt Count Creat Clearance w eGFR Uric Acid 8.2 H Synovial WBC 75,141 Synovial RBC 3.404 Synovial Neutrophils 93 Synovial Lymphocytes 1 Synovial Monocytes 2 Synovial Crystals Negative 06/24/17 06/24/17 06:15 06:15 WBC 6.3 Hgb 13.2 Plt Count 106 L Creat Clearance w eGFR 38.41 Uric Acid Synovial WBC Synovial RBC Synovial Neutrophils Synovial Lymphocytes Synovial Monocytes Synovial Crystals Assessment Inflammatory collection ? infection vs inflammatory crystal negative and no culture sent Suspect gout better with steroids overnight Plan Stop antibiotic Discharge on steroids
--- NOTE | 2017-06-24 15:20 | PN ---
Progress Note, Physician - Current Medication List Current Medications: Active Medications Albuterol/Ipratropium (Duoneb -) 1 amp NEB QIDR [facility] Last Admin: 06/24/17 11:29 Dose: 1 amp Aspirin (Ecotrin -) 81 mg PO DAILY [facility] Last Admin: 06/24/17 09:44 Dose: 81 mg Atenolol (Tenormin -) 50 mg PO BID [facility] Last Admin: 06/24/17 09:44 Dose: 50 mg Atorvastatin Calcium (Lipitor -) 40 mg PO HS [facility] Last Admin: 06/23/17 21:45 Dose: 40 mg Cilostazol (Pletal -) 100 mg PO DAILY [facility] Last Admin: 06/24/17 11:47 Dose: 100 mg Colchicine (Colcrys -) 0.6 mg PO DAILY [facility] Last Admin: 06/24/17 09:45 Dose: 0.6 mg Diltiazem HCl (Cardizem Cd -) 240 mg PO DAILY [facility] Last Admin: 06/24/17 09:44 Dose: 240 mg Donepezil HCl (Aricept -) 5 mg PO DAILY [facility] Last Admin: 06/24/17 09:45 Dose: 5 mg Furosemide (Lasix -) 40 mg PO DAILY [facility] Last Admin: 06/24/17 09:45 Dose: 40 mg Vancomycin HCl (Vancomycin (Pre-Docked)) 250 mls @ 250 mls/hr IVPB BID@0100, 1300 [facility] PRN Reason: Protocol Methylprednisolone Sodium Succinate (Solu-Medrol -) 40 mg IVPB Q6H-IV [facility] Last Admin: 06/24/17 09:44 Dose: 40 mg Non-Formulary Medication (Memantine Hcl [Namenda Xr]) 14 mg PO DAILY [facility] Tamsulosin HCl (Flomax -) 0.4 mg PO DAILY [facility] Last Admin: 06/24/17 09:44 Dose: 0.4 mg Warfarin Sodium (Coumadin -) 4 mg PO DAILY@1800 [facility] Last Admin: 06/23/17 19:49 Dose: 4 mg - Objective Vital Signs: Vital Signs Temperature 98.6 F 06/24/17 10:00 Pulse Rate 60 06/24/17 10:00 Respiratory Rate 18 06/24/17 10:00 Blood Pressure 168/98 06/24/17 10:00 O2 Sat by Pulse Oximetry (%) 96 06/24/17 09:00 Labs: CBC, BMP 06/24/17 06:15 06/24/17 06:15 INR, PTT INR 1.97 (0.82-1.09) H 06/24/17 09:20 Problem List - Problems (1) Cellulitis of elbow Code(s): L03.119 - CELLULITIS OF UNSPECIFIED PART OF LIMB (2) Gout Code(s): M10.9 - GOUT, UNSPECIFIED Qualifiers: Gout site: elbow Gout etiology: unspecified cause Chronicity: acute Laterality: right Qualified Code(s): M10.9 - Gout, unspecified ; M10.9 - Gout, unspecified
[2017-06-24] MEDS: WARFARIN NA 2 MG TABLET (UD) PO SCH (17:12)
[2017-06-24] MEDS: ATORVASTATIN CA 40 MG TABLET (FP) PO SCH (22:28)
[2017-06-25] MEDS: methylPREDNISolone NA SUCC 40 MG/1 ML VIAL IVPB SCH (03:45)
[2017-06-25] MEDS: ALBUTEROL SO4 2.5/IPRATROPIUM 0.5 INH SOL 3 ML VIAL.NEB. NEB SCH ×4 (05:58→23:03)
[2017-06-25 07:24] LABS: MCH 30.7 pg (25.7-33.7); MCHC 32.7 g/dl (32.0-35.9); MEAN CELL VOLUME 93.7 fl (80-96); MEAN PLT VOLUME 9.7 fl (7.5-11.1); PLATELET COUNT 126 K/MM3 (134-434); RDW 15.1 % (11.9-15.9)
[2017-06-25 07:35] LABS: ALBUMIN 3.3 g/dl (3.4-5.0); ANION GAP 14 (8-16); CO2 25 mmol/L (21-32); GLUCOSE,RANDOM 178 mg/dL (74-106); SGPT/ALT 23 U/L (12-78)
[2017-06-25 07:38] LABS: ALK PHOS 79 U/L (45-117); BILIRUBIN,TOTAL 0.6 mg/dL (0.2-1.0); CREATININE 2.7 mg/dL (0.7-1.3); SGOT/AST 30 U/L (15-37); TOT PROT 6.1 g/dl (6.4-8.2)
[2017-06-25 07:40] LABS: INR 3.11 (0.82-1.09); PROTHROMBIN TIME (PATIENT) 35.1 SEC (9.98-11.88)
--- NOTE | 2017-06-25 08:05 | DS ---
Physical Examination Vital Signs: Vital Signs Temperature 97.9 F 06/25/17 05:38 Pulse Rate 62 06/25/17 05:38 Respiratory Rate 20 06/25/17 05:38 Blood Pressure 113/65 06/25/17 05:38 O2 Sat by Pulse Oximetry (%) 97 06/24/17 21:00 Labs: CBC, BMP 06/25/17 05:10 Discharge Summary Reason For Visit: EFFUSION OF ELBOW,GOUT,CELLULITIS ELBOW Current Active Problems Acute exacerbation of chronic obstructive pulmonary disease (COPD) (Acute) Afib (Acute) BPH (benign prostatic hyperplasia) (Acute) CAD (coronary artery disease) (Acute) Cellulitis of elbow (Acute) GIB (gastrointestinal bleeding) (Acute) Gout (Acute) HTN (hypertension) (Acute) Joint effusion of elbow (Acute) Post-polypectomy bleeding (Acute) Weakness (Acute) Hospital Course: 87M with pmh of HTN, CAD s/p cabg, Afib on warfarin, CHF and gout brought to the ED by ambulance for AMS and left elbow pain since last night. EMS found him to have a blood pressure of 280/134 which they corrected with 0.8mg of sublingual nitro to 209/112. Patient sole current complaint is his left elbow but feel otherwise comfortable. He was recently admitted for a gout flare to the right elbow in April for which he was prescribed Allopurinol although the pharmacy denies the patient ever taking it. 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 Cardiovascular: Yes: AFIB, CAD (s/p CABG), CHF Pulmonary: Yes: COPD Gastrointestinal: Yes: Other (colonic polyps) Renal/: Yes: Renal Inusuff Musculoskeletal: Yes: Osteoarthritis Rheumatology: Yes: Gout - Past Surgical History Past Surgical History: Yes: CABG, Permanent Pacemaker, Valve Replacement - Problems (1) Acute exacerbation of chronic obstructive pulmonary disease (COPD) Assessment/Plan: IV STEROIDS-TO PO TODAY NEBS Code(s): J44.1 - CHRONIC OBSTRUCTIVE PULMONARY DISEASE W (ACUTE) EXACERBATION (2) Afib Assessment/Plan: COUMADIN PER INR FOLLOW INR Code(s): I48.91 - UNSPECIFIED ATRIAL FIBRILLATION Qualifiers: Atrial fibrillation type: chronic Qualified Code(s): I48.2 - Chronic atrial fibrillation; I48.2 - Chronic atrial fibrillation; I48.2 - Chronic atrial fibrillation; I48.2 - Chronic atrial fibrillation (3) Cellulitis of elbow Assessment/Plan: OFF ANCEF ID NOTED --NO ABX Code(s): L03.119 - CELLULITIS OF UNSPECIFIED PART OF LIMB (4) Gout Assessment/Plan: MUCH BETTER ON COLCRYS ON STEROIDS Code(s): M10.9 - GOUT, UNSPECIFIED Qualifiers: Gout site: elbow Gout etiology: unspecified cause Chronicity: acute Laterality: right Qualified Code(s): M10.9 - Gout, unspecified ; M10.9 - Gout, unspecified (5) CKD (chronic kidney disease) Assessment/Plan: MONITOR ON CURRENT MEDS Code(s): N18.9 - CHRONIC KIDNEY DISEASE, UNSPECIFIED AWAIT LABS IF STABLE WILL DC HOME Condition: Improved - Instructions Referrals: Dory Sandoval MD [Primary Care Provider] - Disposition: VNS/HOME HEALTH CARE - Home Medications Comprehensive Discharge Medication List: Ambulatory Orders Atenolol [Tenormin -] 50 mg PO BID 05/15/13 Tamsulosin HCl 0.4 mg PO DAILY 04/23/15 Aspirin Coated [Ecotrin -] 81 mg PO DAILY #30 tablet.ec 12/29/15 Furosemide [Lasix -] 40 mg PO DAILY tablet 02/26/16 Warfarin Sodium 4 mg PO HS 04/28/17 Diltiazem Cd [Cardizem Cd -] 240 mg PO DAILY #30 cap.cd.24h MDD 1 04/30/17 Atorvastatin Ca [Lipitor] 40 mg PO HS 06/23/17 Cilostazol 100 mg PO DAILY 06/23/17 Donepezil HCl 5 mg PO DAILY 06/23/17 Memantine HCl [Namenda Xr] 14 mg PO DAILY 06/23/17 Colchicine [Colcrys -] 0.6 mg PO DAILY #30 tablet 06/25/17 Prednisone [Deltasone -] 30 mg PO DAILY #18 tablet 06/25/17
[2017-06-25] MEDS ORDERED: PT OWN MED DRAWER 7, Y5N ONE (09:32)
--- NOTE | 2017-06-25 09:33 | PN ---
Problem List - Problems (1) Acute exacerbation of chronic obstructive pulmonary disease (COPD) Assessment/Plan: IV STEROIDS NEBS Code(s): J44.1 - CHRONIC OBSTRUCTIVE PULMONARY DISEASE W (ACUTE) EXACERBATION (2) Afib Assessment/Plan: COUMADIN FOLLOW INR Code(s): I48.91 - UNSPECIFIED ATRIAL FIBRILLATION Qualifiers: Atrial fibrillation type: chronic Qualified Code(s): I48.2 - Chronic atrial fibrillation; I48.2 - Chronic atrial fibrillation; I48.2 - Chronic atrial fibrillation; I48.2 - Chronic atrial fibrillation (3) Cellulitis of elbow Assessment/Plan: ON ANCEF ID Code(s): L03.119 - CELLULITIS OF UNSPECIFIED PART OF LIMB (4) Gout Assessment/Plan: ON COLCRYS ON STEROIDS Code(s): M10.9 - GOUT, UNSPECIFIED Qualifiers: Gout site: elbow Gout etiology: unspecified cause Chronicity: acute Laterality: right Qualified Code(s): M10.9 - Gout, unspecified ; M10.9 - Gout, unspecified (5) CKD (chronic kidney disease) Assessment/Plan: MONITOR ON CURRENT MEDS Code(s): N18.9 - CHRONIC KIDNEY DISEASE, UNSPECIFIED (6) Acute renal failure Assessment/Plan: Laboratory Tests 06/23/17 06/24/17 06/25/17 13:10 06:15 05:10 BUN 48 H 50 H 77 H D Creatinine 1.7 H 1.7 H 2.7 H D DC LASIX,COLCRYS IVF MONITOR Code(s): N17.9 - ACUTE KIDNEY FAILURE, UNSPECIFIED
[2017-06-25] MEDS: predniSONE 10 MG TABLET (UD) PO SCH (09:44)
[2017-06-25] MEDS: DONEPEZIL HCL 5 MG TABLET (FP) PO SCH (09:45)
[2017-06-25] MEDS: ASPIRIN COATED 81 MG TABLET.EC PO SCH (09:45)
[2017-06-25] MEDS: TAMSULOSIN HCL 0.4 MG CAP.ER.24H (FP) PO SCH (09:45)
[2017-06-25] MEDS: ATENOLOL 50 MG TABLET (FP) PO SCH (09:45)
[2017-06-25] MEDS: CILOSTAZOL 100 MG TABLET PO SCH (09:46)
[2017-06-25 10:02] LABS: TOTAL CELLS COUNTED 100
--- NOTE | 2017-06-25 10:16 | CON.ORTH ---
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 Cardio/Vascular: Yes: AFIB, CAD (s/p CABG), CHF Pulmonary: Yes: COPD Gastrointestinal: Yes: Other (colonic polyps) Renal/: Yes: Renal Inusuff Musculoskeletal: Yes: Osteoarthritis Rheumatology: Yes: Gout - Past Surgical History Past Surgical History: Yes: CABG, Permanent Pacemaker, Valve Replacement - Alcohol/Substance Use Hx Alcohol Use: No - Smoking History Smoking history: Former smoker Have you smoked in the past 12 months: No Aproximately how many cigarettes per day: 0 If you are a former smoker, when did you quit?: 40 YRS AGO - Social History Usual Living Arrangement: With Spouse History of Recent Travel: No Home Medications - Allergies Allergies/Adverse Reactions: Allergies Allergy/AdvReac Type Severity Reaction Status Date / Time No Known Allergies Allergy Verified 06/23/17 12:58 - Home Medications Home Medications: Ambulatory Orders Atenolol [Tenormin -] 50 mg PO BID 05/15/13 Tamsulosin HCl 0.4 mg PO DAILY 04/23/15 Aspirin Coated [Ecotrin -] 81 mg PO DAILY #30 tablet.ec 12/29/15 Furosemide [Lasix -] 40 mg PO DAILY tablet 02/26/16 Warfarin Sodium 4 mg PO HS 04/28/17 Diltiazem Cd [Cardizem Cd -] 240 mg PO DAILY #30 cap.cd.24h MDD 1 04/30/17 Atorvastatin Ca [Lipitor] 40 mg PO HS 06/23/17 Cilostazol 100 mg PO DAILY 06/23/17 Donepezil HCl 5 mg PO DAILY 06/23/17 Memantine HCl [Namenda Xr] 14 mg PO DAILY 06/23/17 Colchicine [Colcrys -] 0.6 mg PO DAILY #30 tablet 06/25/17 Prednisone [Deltasone -] 30 mg PO DAILY #18 tablet 06/25/17 Physical Exam for Ortho Vital Signs: Vital Signs Temperature 97.9 F 06/25/17 05:38 Pulse Rate 62 06/25/17 05:38 Respiratory Rate 20 06/25/17 05:38 Blood Pressure 113/65 06/25/17 05:38 O2 Sat by Pulse Oximetry (%) 97 06/24/17 21:00 Labs: CBC, BMP 06/25/17 05:10 06/25/17 05:10 INR, PTT INR 3.11 (0.82-1.09) H D 06/25/17 05:10 - Upper Extremity Elbow: Yes: Left, Other (mild swelling, no erythema, nontender, ROM 5-140, nvi) Imaging - Results X-ray: Report Reviewed, Image Reviewed Assessment/Plan 87M with pmh of HTN, CAD s/p cabg, Afib on warfarin, CHF and gout c/o left elbow pain. Had elbow aspirated in ED. Feels much better now. a/p- left elbow gout, djd Pt is much improved- continue colchicine and allopurinol ROm exercises nothing further to do orthopedically stable d/w Dr. Michaels
[2017-06-25] MEDS: POTASSIUM CHLORIDE 10 MEQ in SODIUM CHLORIDE 0.45% 1,000 ML IVPB SCH (10:47)
[2017-06-25 17:17] VITALS: BMI 23.3
--- NOTE | 2017-06-25 17:17 | CON.NEP ---
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 Cardio/Vascular: Yes: AFIB, CAD (s/p CABG), CHF Pulmonary: Yes: COPD Gastrointestinal: Yes: Other (colonic polyps) Renal/: Yes: Renal Inusuff Musculoskeletal: Yes: Osteoarthritis Rheumatology: Yes: Gout - Past Surgical History Past Surgical History: Yes: CABG, Permanent Pacemaker, Valve Replacement - Alcohol/Substance Use Hx Alcohol Use: No - Smoking History Smoking history: Former smoker Have you smoked in the past 12 months: No Aproximately how many cigarettes per day: 0 If you are a former smoker, when did you quit?: 40 YRS AGO - Social History Usual Living Arrangement: With Spouse History of Recent Travel: No Home Medications - Allergies Allergies/Adverse Reactions: Allergies Allergy/AdvReac Type Severity Reaction Status Date / Time No Known Allergies Allergy Verified 06/23/17 12:58 - Home Medications Home Medications: Ambulatory Orders Atenolol [Tenormin -] 50 mg PO BID 05/15/13 Tamsulosin HCl 0.4 mg PO DAILY 04/23/15 Aspirin Coated [Ecotrin -] 81 mg PO DAILY #30 tablet.ec 12/29/15 Furosemide [Lasix -] 40 mg PO DAILY tablet 02/26/16 Warfarin Sodium 4 mg PO HS 04/28/17 Diltiazem Cd [Cardizem Cd -] 240 mg PO DAILY #30 cap.cd.24h MDD 1 04/30/17 Atorvastatin Ca [Lipitor] 40 mg PO HS 06/23/17 Cilostazol 100 mg PO DAILY 06/23/17 Donepezil HCl 5 mg PO DAILY 06/23/17 Memantine HCl [Namenda Xr] 14 mg PO DAILY 06/23/17 Colchicine [Colcrys -] 0.6 mg PO DAILY #30 tablet 06/25/17 Prednisone [Deltasone -] 30 mg PO DAILY #18 tablet 06/25/17 Review of Systems Unable to obtain ROS, reason: feels well now Nephrology Consult - Height Height: 5 ft 5 in - Weight Weight: 140 lb 8 oz - BMI Body Mass Index (BMI): 23.3 - Lab Results CBC,BMP: CBC, BMP 06/25/17 05:10 06/25/17 05:10 Anion Gap: Anion Gap Anion Gap 14 (8-16) 06/25/17 05:10 - Imaging Chest X-ray: Image Reviewed Ultrasound: Report Reviewed - Physical Examination Vital Signs: Vital Signs Temperature 97.5 F L 06/25/17 14:55 Pulse Rate 60 06/25/17 14:55 Respiratory Rate 18 06/25/17 14:55 Blood Pressure 132/57 06/25/17 14:55 O2 Sat by Pulse Oximetry (%) 93 L 06/25/17 10:38 Extremities: Yes: Other (no pain in left elbow full ROM) Edema: No Assessment/Plan 87 WITH HTN AFIB CAD PRESERVED EF IN WITH LEFT ELBOW SWELLING CR UP FROM 1.7 TO 2.7 CAUSE UNCLEAR MAY BE VOLUME DEPLETED UA IS BLAND ON NO NSAIDS AT HOME WAS NOT ON COLCHICINE AT HOME EITHER AGREE WITH HOLDING LASIX ( GOT A DOSE YESTERDAY ) AND HYDRATING HIM WITH NS AT 75/HR BLADDER SCANNED NOT RETAINING LOWER TENORMIN TO 50 Q HS CARDIZEM IN AM ON PO PREDNISONE HELPING GOUT AVOID COLCHICINE NSAIDS DO NOT START ALLOPURINOL FOR 1-2 WEEKS TILL GOUT FLARE IS OVER WILL FOLLOW IN AM DR CRUZ COVERING THIS WEEKEND
[2017-06-25] MEDS: ATORVASTATIN CA 40 MG TABLET (FP) PO SCH (21:28)
[2017-06-26] MEDS: POTASSIUM CHLORIDE 10 MEQ in SODIUM CHLORIDE 0.45% 1,000 ML IVPB SCH ×2 (03:22→17:34)
[2017-06-26] MEDS: ALBUTEROL SO4 2.5/IPRATROPIUM 0.5 INH SOL 3 ML VIAL.NEB. NEB SCH ×4 (06:55→23:20)
[2017-06-26 08:20] LABS: ANION GAP 16 (8-16); CALCIUM 7.8 mg/dL (8.5-10.1); CO2 21 mmol/L (21-32); GLUCOSE,RANDOM 125 mg/dL (74-106)
[2017-06-26 08:23] LABS: CREATININE 3.5 mg/dL (0.7-1.3)
[2017-06-26] MEDS: predniSONE 10 MG TABLET (UD) PO SCH (09:18)
[2017-06-26] MEDS: DONEPEZIL HCL 5 MG TABLET (FP) PO SCH (09:18)
[2017-06-26] MEDS: TAMSULOSIN HCL 0.4 MG CAP.ER.24H (FP) PO SCH (09:19)
[2017-06-26] MEDS: ATENOLOL 50 MG TABLET (FP) PO SCH (09:19)
[2017-06-26] MEDS: ASPIRIN COATED 81 MG TABLET.EC PO SCH (09:19)
[2017-06-26] MEDS: CILOSTAZOL 100 MG TABLET PO SCH (10:40)
--- NOTE | 2017-06-26 11:22 | PN ---
Progress Note, Physician History of Present Illness: DOING BETTER--NO PAIN - Current Medication List Current Medications: Active Medications Albuterol/Ipratropium (Duoneb -) 1 amp NEB QIDR [facility] Last Admin: 06/26/17 11:07 Dose: 1 amp Aspirin (Ecotrin -) 81 mg PO DAILY [facility] Last Admin: 06/26/17 09:19 Dose: 81 mg Atenolol (Tenormin -) 50 mg PO DAILY [facility] Last Admin: 06/26/17 09:19 Dose: 50 mg Atorvastatin Calcium (Lipitor -) 40 mg PO HS [facility] Last Admin: 06/25/17 21:28 Dose: 40 mg Cilostazol (Pletal -) 100 mg PO DAILY [facility] Last Admin: 06/26/17 10:40 Dose: 100 mg Diltiazem HCl (Cardizem Cd -) 240 mg PO DAILY [facility] Last Admin: 06/26/17 09:19 Dose: 240 mg Donepezil HCl (Aricept -) 5 mg PO DAILY [facility] Last Admin: 06/26/17 09:18 Dose: 5 mg Potassium Chloride 10 meq/ (Sodium Chloride) 1,005 mls @ 75 mls/hr IVPB Q13H [facility] Last Admin: 06/26/17 03:22 Dose: 75 mls/hr Non-Formulary Medication (Memantine Hcl [Namenda Xr]) 14 mg PO DAILY [facility] Prednisone (Deltasone -) 30 mg PO DAILY [facility] Last Admin: 06/26/17 09:18 Dose: 30 mg Tamsulosin HCl (Flomax -) 0.4 mg PO DAILY [facility] Last Admin: 06/26/17 09:19 Dose: 0.4 mg Warfarin Sodium (Coumadin -) 4 mg PO DAILY@1800 [facility] Last Admin: 06/24/17 17:12 Dose: 4 mg - Objective Vital Signs: Vital Signs Temperature 97.9 F 06/26/17 05:41 Pulse Rate 61 06/26/17 05:41 Respiratory Rate 20 06/26/17 05:41 Blood Pressure 142/58 06/26/17 05:41 O2 Sat by Pulse Oximetry (%) 93 L 06/25/17 21:00 Cardiovascular: Yes: S1, S2 Respiratory: Yes: Regular, CTA Bilaterally Gastrointestinal: Yes: Normal Bowel Sounds, Soft Labs: CBC, BMP 06/25/17 05:10 06/26/17 05:18 INR, PTT INR 3.11 (0.82-1.09) H D 06/25/17 05:10 Problem List - Problems (1) Acute exacerbation of chronic obstructive pulmonary disease (COPD) Assessment/Plan: IV STEROIDS NEBS Code(s): J44.1 - CHRONIC OBSTRUCTIVE PULMONARY DISEASE W (ACUTE) EXACERBATION (2) Afib Assessment/Plan: COUMADIN FOLLOW INR Code(s): I48.91 - UNSPECIFIED ATRIAL FIBRILLATION Qualifiers: Atrial fibrillation type: chronic Qualified Code(s): I48.2 - Chronic atrial fibrillation; I48.2 - Chronic atrial fibrillation; I48.2 - Chronic atrial fibrillation; I48.2 - Chronic atrial fibrillation (3) Cellulitis of elbow Assessment/Plan: OFF ANCEF ID NOTED NO SIGNS OF INFECTION Code(s): L03.119 - CELLULITIS OF UNSPECIFIED PART OF LIMB (4) Gout Assessment/Plan: ON COLCRYS ON STEROIDS Code(s): M10.9 - GOUT, UNSPECIFIED Qualifiers: Gout site: elbow Gout etiology: unspecified cause Chronicity: acute Laterality: right Qualified Code(s): M10.9 - Gout, unspecified ; M10.9 - Gout, unspecified (5) CKD (chronic kidney disease) Assessment/Plan: MONITOR ON CURRENT MEDS Code(s): N18.9 - CHRONIC KIDNEY DISEASE, UNSPECIFIED (6) Acute renal failure Assessment/Plan: Laboratory Tests 06/23/17 06/24/17 06/25/17 13:10 06:15 05:10 BUN 50 H 77 H D Creatinine 1.7 H 1.7 H 2.7 H D 06/26/17 05:18 BUN 94 H D Creatinine 3.5 H D DC LASIX,COLCRYS IVF MONITOR Code(s): N17.9 - ACUTE KIDNEY FAILURE, UNSPECIFIED
[2017-06-26 12:47] LABS: PROTHROMBIN TIME (PATIENT) 45.7 SEC (9.98-11.88)
[2017-06-26 12:54] LABS: INR 4.04 (0.82-1.09)
[2017-06-26] MEDS: WARFARIN NA 2 MG TABLET (UD) PO SCH (17:08)
[2017-06-26] MEDS: ATORVASTATIN CA 40 MG TABLET (FP) PO SCH (22:12)
[2017-06-27] MEDS: POTASSIUM CHLORIDE 10 MEQ in SODIUM CHLORIDE 0.45% 1,000 ML IVPB SCH ×2 (01:00→14:42)
[2017-06-27] MEDS: ALBUTEROL SO4 2.5/IPRATROPIUM 0.5 INH SOL 3 ML VIAL.NEB. NEB SCH ×4 (06:34→23:01)
--- NOTE | 2017-06-27 09:04 | PN ---
Progress Note, Physician History of Present Illness: DOING BETTER--NO PAIN - Current Medication List Current Medications: Active Medications Albuterol/Ipratropium (Duoneb -) 1 amp NEB QIDR [facility] Last Admin: 06/27/17 06:34 Dose: 1 amp Aspirin (Ecotrin -) 81 mg PO DAILY [facility] Last Admin: 06/26/17 09:19 Dose: 81 mg Atenolol (Tenormin -) 50 mg PO DAILY [facility] Last Admin: 06/26/17 09:19 Dose: 50 mg Atorvastatin Calcium (Lipitor -) 40 mg PO HS [facility] Last Admin: 06/26/17 22:12 Dose: 40 mg Cilostazol (Pletal -) 100 mg PO DAILY [facility] Last Admin: 06/26/17 10:40 Dose: 100 mg Diltiazem HCl (Cardizem Cd -) 240 mg PO DAILY [facility] Last Admin: 06/26/17 09:19 Dose: 240 mg Donepezil HCl (Aricept -) 5 mg PO DAILY [facility] Last Admin: 06/26/17 09:18 Dose: 5 mg Potassium Chloride 10 meq/ (Sodium Chloride) 1,005 mls @ 75 mls/hr IVPB Q13H [facility] Last Admin: 06/27/17 01:00 Dose: 75 mls/hr Non-Formulary Medication (Memantine Hcl [Namenda Xr]) 14 mg PO DAILY [facility] Prednisone (Deltasone -) 30 mg PO DAILY [facility] Last Admin: 06/26/17 09:18 Dose: 30 mg Tamsulosin HCl (Flomax -) 0.4 mg PO DAILY [facility] Last Admin: 06/26/17 09:19 Dose: 0.4 mg Warfarin Sodium (Coumadin -) 4 mg PO DAILY@1800 [facility] Last Admin: 06/26/17 17:08 Dose: Not Given - Objective Vital Signs: Vital Signs Temperature 98.1 F 06/27/17 08:27 Pulse Rate 66 06/27/17 08:27 Respiratory Rate 20 06/27/17 08:27 Blood Pressure 174/90 06/27/17 08:27 O2 Sat by Pulse Oximetry (%) 95 06/26/17 21:00 Neck: Yes: Supple Cardiovascular: Yes: Regular Rate and Rhythm Respiratory: Yes: Regular, CTA Bilaterally Gastrointestinal: Yes: Normal Bowel Sounds, Soft Labs: CBC, BMP 06/25/17 05:10 06/26/17 05:18 INR, PTT INR 4.04 (0.82-1.09) H* 06/26/17 12:15 Problem List - Problems (1) Acute exacerbation of chronic obstructive pulmonary disease (COPD) Assessment/Plan: IV STEROIDS NEBS Code(s): J44.1 - CHRONIC OBSTRUCTIVE PULMONARY DISEASE W (ACUTE) EXACERBATION (2) Afib Assessment/Plan: COUMADIN FOLLOW INR Code(s): I48.91 - UNSPECIFIED ATRIAL FIBRILLATION Qualifiers: Atrial fibrillation type: chronic Qualified Code(s): I48.2 - Chronic atrial fibrillation; I48.2 - Chronic atrial fibrillation; I48.2 - Chronic atrial fibrillation; I48.2 - Chronic atrial fibrillation (3) Cellulitis of elbow Assessment/Plan: OFF ANCEF ID NOTED NO SIGNS OF INFECTION Code(s): L03.119 - CELLULITIS OF UNSPECIFIED PART OF LIMB (4) Gout Assessment/Plan: ON COLCRYS ON STEROIDS Code(s): M10.9 - GOUT, UNSPECIFIED Qualifiers: Gout site: elbow Gout etiology: unspecified cause Chronicity: acute Laterality: right Qualified Code(s): M10.9 - Gout, unspecified ; M10.9 - Gout, unspecified (5) CKD (chronic kidney disease) Assessment/Plan: MONITOR ON CURRENT MEDS Code(s): N18.9 - CHRONIC KIDNEY DISEASE, UNSPECIFIED (6) Acute renal failure Assessment/Plan: Laboratory Tests 06/23/17 06/24/17 06/25/17 13:10 06:15 05:10 BUN 50 H 77 H D Creatinine 1.7 H 1.7 H 2.7 H D 06/26/17 05:18 BUN 94 H D Creatinine 3.5 H D DC LASIX,COLCRYS IVF MONITOR Code(s): N17.9 - ACUTE KIDNEY FAILURE, UNSPECIFIED
[2017-06-27] MEDS: ASPIRIN COATED 81 MG TABLET.EC PO SCH (09:45)
[2017-06-27] MEDS: ATENOLOL 50 MG TABLET (FP) PO SCH (09:45)
[2017-06-27] MEDS: CILOSTAZOL 100 MG TABLET PO SCH (09:45)
[2017-06-27] MEDS: TAMSULOSIN HCL 0.4 MG CAP.ER.24H (FP) PO SCH (09:45)
[2017-06-27] MEDS: predniSONE 10 MG TABLET (UD) PO SCH (09:45)
[2017-06-27] MEDS: DONEPEZIL HCL 5 MG TABLET (FP) PO SCH (09:45)
[2017-06-27 10:45] LABS: ALBUMIN 3.1 g/dl (3.4-5.0); ANION GAP 12 (8-16); CO2 19 mmol/L (21-32); CREATININE 2.9 mg/dL (0.7-1.3); GLUCOSE,RANDOM 117 mg/dL (74-106); SGOT/AST 33 U/L (15-37); SGPT/ALT 46 U/L (12-78)
[2017-06-27 10:46] LABS: ALK PHOS 61 U/L (45-117); BILIRUBIN,TOTAL 0.4 mg/dL (0.2-1.0); TOT PROT 5.8 g/dl (6.4-8.2)
[2017-06-27 10:51] LABS: INR 2.95 (0.82-1.09); PROTHROMBIN TIME (PATIENT) 33.3 SEC (9.98-11.88)
[2017-06-27] MEDS ORDERED: PT OWN MED DRAWER 7, Y5N ONE (15:03)
[2017-06-27] MEDS: WARFARIN NA 2 MG TABLET (UD) PO SCH (17:03)
--- NOTE | 2017-06-27 19:05 | PN ---
Progress Note (short form) - Note Progress Note: 87 year old gentleman with history of atrial fibrillation, hypertension and chronic kidney disease admitted with acute gouty flare up. Patient is feeling better today and denies any complaint. He reports decent appetite. Vitals: Vital Signs (72 hours) 06/24/17 06/24/17 06/25/17 21:00 21:07 02:00 Temperature 97.7 F 97.5 F L Pulse Rate 60 62 Respiratory 20 20 20 Rate Blood Pressure 137/57 138/69 O2 Sat by Pulse 97 Oximetry (%) 06/25/17 06/25/17 06/25/17 05:38 09:00 10:00 Temperature 97.9 F 98 F Pulse Rate 62 60 Respiratory 20 18 Rate Blood Pressure 113/65 140/62 O2 Sat by Pulse 95 Oximetry (%) 06/25/17 06/25/17 06/25/17 10:38 14:55 18:00 Temperature 97.5 F L 97.8 F Pulse Rate 61 60 60 Respiratory 18 18 Rate Blood Pressure 132/57 134/57 O2 Sat by Pulse 93 L Oximetry (%) 06/25/17 06/25/17 06/26/17 21:00 22:00 02:00 Temperature 98.2 F 97.5 F L Pulse Rate 61 61 Respiratory 18 18 20 Rate Blood Pressure 128/55 116/56 O2 Sat by Pulse 93 L Oximetry (%) 06/26/17 06/26/17 06/26/17 05:41 15:48 17:00 Temperature 97.9 F 97.7 F 97.5 F L Pulse Rate 61 60 60 Respiratory 20 16 20 Rate Blood Pressure 142/58 137/68 136/58 O2 Sat by Pulse Oximetry (%) 06/26/17 06/27/17 06/27/17 21:00 01:00 05:00 Temperature 97.7 F 97.3 F L 97.8 F Pulse Rate 59 L 62 64 Respiratory 18 20 20 Rate Blood Pressure 142/58 135/62 188/84 O2 Sat by Pulse 95 Oximetry (%) 06/27/17 06/27/17 06/27/17 08:00 08:27 13:00 Temperature 98.1 F 97.6 F Pulse Rate 66 65 Respiratory 20 20 20 Rate Blood Pressure 174/90 172/80 O2 Sat by Pulse 98 Oximetry (%) Lungs: coarse breath sound in both lung alejandre Heart: S1 S2 irregular, no gallop Abd: Full, soft, non-tender Ext: No edema Neuro: Awake and alert LABS: CBCD WBC 10.0 K/mm3 (4.0-10.0) D 06/25/17 05:10 RBC 4.23 M/mm3 (4.00-5.60) 06/25/17 05:10 Hgb 13.0 GM/dL (11.7-16.9) 06/25/17 05:10 Hct 39.6 % (35.4-49) 06/25/17 05:10 MCV 93.7 fl (80-96) 06/25/17 05:10 MCHC 32.7 g/dl (32.0-35.9) 06/25/17 05:10 RDW 15.1 % (11.9-15.9) 06/25/17 05:10 Plt Count 126 K/MM3 (134-434) L 06/25/17 05:10 MPV 9.7 fl (7.5-11.1) 06/25/17 05:10 CMP Sodium 129 mmol/L (136-145) L 06/27/17 09:40 Potassium 5.1 mmol/L (3.5-5.1) D 06/27/17 09:40 Chloride 98 mmol/L (98-107) 06/27/17 09:40 Carbon Dioxide 19 mmol/L (21-32) L 06/27/17 09:40 Anion Gap 12 (8-16) 06/27/17 09:40 BUN 95 mg/dL (7-18) H 06/27/17 09:40 Creatinine 2.9 mg/dL (0.7-1.3) H 06/27/17 09:40 Creat Clearance w eGFR 20.74 (>60) 06/27/17 09:40 Calcium 7.0 mg/dL (8.5-10.1) L 06/27/17 09:40 Total Bilirubin 0.4 mg/dL (0.2-1.0) D 06/27/17 09:40 AST 33 U/L (15-37) 06/27/17 09:40 ALT 46 U/L (12-78) D 06/27/17 09:40 Alkaline Phosphatase 61 U/L (45-117) D 06/27/17 09:40 Total Protein 5.8 g/dl (6.4-8.2) L 06/27/17 09:40 Albumin 3.1 g/dl (3.4-5.0) L 06/27/17 09:40 A/P: Elderly gentleman with A.Fib admitted with acute gouty flare-up and acute on chronic kidney disease. Slight improvement in renal indices noted although with slighy decrease in serum sodium content. Repeat labs in a.m and adjust iv fluid as needed. Will follow. Problem List - Problems (1) Afib Code(s): I48.91 - UNSPECIFIED ATRIAL FIBRILLATION Qualifiers: Atrial fibrillation type: chronic Qualified Code(s): I48.2 - Chronic atrial fibrillation; I48.2 - Chronic atrial fibrillation; I48.2 - Chronic atrial fibrillation; I48.2 - Chronic atrial fibrillation (2) CKD (chronic kidney disease) Code(s): N18.9 - CHRONIC KIDNEY DISEASE, UNSPECIFIED
[2017-06-27] MEDS: ATORVASTATIN CA 40 MG TABLET (FP) PO SCH (22:08)
[2017-06-27] MEDS ORDERED: LORazepam 2 MG/ML SDV VIAL ONE (23:03)
[2017-06-28] MEDS: POTASSIUM CHLORIDE 10 MEQ in SODIUM CHLORIDE 0.45% 1,000 ML IVPB SCH (02:32)
[2017-06-28] MEDS: ALBUTEROL SO4 2.5/IPRATROPIUM 0.5 INH SOL 3 ML VIAL.NEB. NEB SCH ×2 (06:09→11:05)
[2017-06-28 06:58] LABS: MCH 30.6 pg (25.7-33.7); MEAN CELL VOLUME 92.8 fl (80-96); MEAN PLT VOLUME 9.7 fl (7.5-11.1); NEUTROPHILS 86.2 % (42.8-82.8); PLATELET COUNT 117 K/MM3 (134-434); WHITE BLOOD COUNT 6.5 K/mm3 (4.0-10.0)
[2017-06-28 07:15] LABS: ALBUMIN 2.5 g/dl (3.4-5.0); ALK PHOS 65 U/L (45-117); ANION GAP 7 (8-16); BILIRUBIN,TOTAL 0.8 mg/dL (0.2-1.0); CALCIUM 7.6 mg/dL (8.5-10.1); CO2 29 mmol/L (21-32); CREATININE 0.7 mg/dL (0.7-1.3); GLUCOSE,RANDOM 158 mg/dL (74-106); SGOT/AST 11 U/L (15-37); SGPT/ALT 18 U/L (12-78); TOT PROT 4.7 g/dl (6.4-8.2)
[2017-06-28 07:33] LABS: INR 2.05 (0.82-1.09); PROTHROMBIN TIME (PATIENT) 23.2 SEC (9.98-11.88)
--- NOTE | 2017-06-28 09:43 | DS ---
Physical Examination Vital Signs: Vital Signs Temperature 98.4 F 06/28/17 05:00 Pulse Rate 78 06/28/17 05:00 Respiratory Rate 16 06/28/17 05:00 Blood Pressure 132/78 06/28/17 05:00 O2 Sat by Pulse Oximetry (%) 98 06/27/17 19:38 Constitutional: Yes: Calm, Thin Cardiovascular: Yes: Pulse Irregular, S1, S2 Respiratory: Yes: CTA Bilaterally Gastrointestinal: Yes: Normal Bowel Sounds, Soft Extremities: Yes: Other (varicose veins) Neurological: Yes: Alert, Tremors Labs: CBC, BMP 06/28/17 06:30 06/28/17 06:30 Discharge Summary Reason For Visit: EFFUSION OF ELBOW,GOUT,CELLULITIS ELBOW Current Active Problems Acute exacerbation of chronic obstructive pulmonary disease (COPD) (Acute) Afib (Acute) BPH (benign prostatic hyperplasia) (Acute) CAD (coronary artery disease) (Acute) CKD (chronic kidney disease) (Acute) Cellulitis of elbow (Acute) GIB (gastrointestinal bleeding) (Acute) Gout (Acute) HTN (hypertension) (Acute) Joint effusion of elbow (Acute) Post-polypectomy bleeding (Acute) Weakness (Acute) Hospital Course: - Admission History of Present Illness: 87M with pmh of HTN, CAD s/p cabg, Afib on warfarin, CHF and gout brought to the ED by ambulance for AMS and left elbow pain since last night. EMS found him to have a blood pressure of 280/134 which they corrected with 0.8mg of sublingual nitro to 209/112. Patient sole current complaint is his left elbow but feel otherwise comfortable. He was recently admitted for a gout flare to the right elbow in April for which he was prescribed Allopurinol although the pharmacy denies the patient ever taking it. 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: Yes: Dementia Cardiovascular: Yes: AFIB, CAD (s/p CABG), CHF Pulmonary: Yes: COPD Gastrointestinal: Yes: Other (colonic polyps) Renal/: Yes: Renal Inusuff Musculoskeletal: Yes: Osteoarthritis Rheumatology: Yes: Gout - Past Surgical History Past Surgical History: Yes: CABG, Permanent Pacemaker, Valve Replacement - Smoking History Smoking history: Former smoker Have you smoked in the past 12 months: No Aproximately how many cigarettes per day: 0 If you are a former smoker, when did you quit?: 40 YRS AGO hospital: seen by renal and ortho acute on chronic kidney disease:iv fluids renal sono normal cr now improved to from 3.5 to 0.7 gout on steroids taper and left elbow pain improved, no colchicine given ckd and allopurinol can be started as outpatient in another week or so afib on coumadin inr therapeutic and tenormin dose decreased Condition: Improved - Instructions Referrals: Dory Sandoval MD [Primary Care Provider] - Disposition: VNS/HOME HEALTH CARE - Home Medications Comprehensive Discharge Medication List: Ambulatory Orders Atenolol [Tenormin -] 50 mg PO BID 05/15/13 Tamsulosin HCl 0.4 mg PO DAILY 04/23/15 Aspirin Coated [Ecotrin -] 81 mg PO DAILY #30 tablet.ec 12/29/15 Furosemide [Lasix -] 40 mg PO DAILY tablet 02/26/16 Warfarin Sodium 4 mg PO HS 04/28/17 Diltiazem Cd [Cardizem Cd -] 240 mg PO DAILY #30 cap.cd.24h MDD 1 04/30/17 Atorvastatin Ca [Lipitor] 40 mg PO HS 06/23/17 Cilostazol 100 mg PO DAILY 06/23/17 Donepezil HCl 5 mg PO DAILY 06/23/17 Memantine HCl [Namenda Xr] 14 mg PO DAILY 06/23/17 Colchicine [Colcrys -] 0.6 mg PO DAILY #30 tablet 06/25/17 Prednisone [Deltasone -] 30 mg PO DAILY #18 tablet 06/25/17
[2017-06-28 09:48] VITALS: BP 156/80; TEMP 98.2
[2017-06-28] MEDS: CILOSTAZOL 100 MG TABLET PO SCH (09:49)
[2017-06-28] MEDS: ASPIRIN COATED 81 MG TABLET.EC PO SCH (09:50)
[2017-06-28] MEDS: DONEPEZIL HCL 5 MG TABLET (FP) PO SCH (09:50)
[2017-06-28] MEDS: TAMSULOSIN HCL 0.4 MG CAP.ER.24H (FP) PO SCH (09:50)
[2017-06-28] MEDS: ATENOLOL 50 MG TABLET (FP) PO SCH (09:50)
[2017-06-28] MEDS ORDERED: predniSONE 20 MG TABLET (UD) PO SCH (10:15)
[2017-06-28 11:26] VITALS: PULSE 63
== END 2017-06-28 11:43 | disposition home health service (06) | DRG 565 ==
LOC: JER 12:30 → JERBED 15:22 → J4W 20:20
PROVIDERS: ADMIT Family Medicine; ATTEND Family Medicine
PROC: 0R9M3ZX Drainage of Left Elbow Joint, Percutaneous Approach, Diagnostic (ICD-10-PCS; principal; 2017-06-23)
DX: M25.422 Effusion, left elbow (principal); L03.119 Cellulitis of unspecified part of limb; J44.1 Chronic obstructive pulmonary disease with (acute) exacerbation; N17.9 Acute kidney failure, unspecified; I13.0 Hypertensive heart and chronic kidney disease with heart failure and stage 1 through stage 4 chronic kidney disease, or unspecified chronic kidney disease; N18.9 Chronic kidney disease, unspecified; I50.9 Heart failure, unspecified; I25.10 Atherosclerotic heart disease of native coronary artery without angina pectoris; I48.2 Chronic atrial fibrillation; F03.90 Unspecified dementia, unspecified severity, without behavioral disturbance, psychotic disturbance, mood disturbance, and anxiety; M10.9 Gout, unspecified; E78.00 Pure hypercholesterolemia, unspecified; K63.5 Polyp of colon; M19.022 Primary osteoarthritis, left elbow; N40.0 Benign prostatic hyperplasia without lower urinary tract symptoms; Z87.891 Personal history of nicotine dependence; Z95.1 Presence of aortocoronary bypass graft; Z95.0 Presence of cardiac pacemaker; Z95.2 Presence of prosthetic heart valve
CPT/HCPCS: 36415; 70450-TC; 71010-TC; 73070-TC-LT; 76775-TC; 76856-TC; 80048; 80053; 81003; 82150; 82945; 83605; 83615; 84157; 84550; 85025; 85610; 89051; 89060; 90688; 93005; 93010; 94640; 97116-GP; 97161-GP; 99284-25; G0008